=== PATIENT | male | born 1955 | race Caucasian/White ===

== ENCOUNTER 2025-01-23 10:21 | Outpatient (AMB) | payer MEDICARE, SELFPAY ==
--- NOTE | 2025-01-23 11:04 | A.OFFPC_ITS ---
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, Hypertension Radiotelephone Technical Operator Required: No Accompanied by: Self / Same As Patient Allergies albuterol Allergy (Mild, Verified 01/23/25 11:28) thigh chest Tobacco use date assessed: 01/23/25 Fall risk assessment: No Falls in past year Last assessed Fall Risk: 01/23/25 Dental Screening Dental Screen Date: 01/23/25 Did you have a dental visit in the last 12 months?: No Did you have a dental problem in the last 6 months where you did not have access to dental care?: No Was dental information given to patient?: No HPI HPI Comments History of Present Illness Details History of Present Illness The patient is a 69-year-old male presenting for a new patient visit and management of chronic conditions. Myocardial infarction: - The patient experienced a myocardial i nfarction in 2019, which required the placement of one stent. - He is currently on clopidogrel and met oprolol for management. Type 2 diabetes mellitus: - The patient is on metformin and has be en advised to monitor his A1c levels regularly. - He has experienced weight fluctuations , previously losing weight with Mounjaro but has since regained some weight. Hypertension: - The patient is on amlodipine and losar alaniz for blood pressure management. Hyperlipidemia: - The patient is on atorvastatin for cho lesterol management. Sleep apnea: - The patient has a CPAP machine but has stopped using it since May due to interrupted sleep. Chronic obstructive pulmonary disease (COPD): - The patient has a history of COPD, whi ch is managed alongside his sleep apnea. History of smoking: - The patient quit smoking over 30 years ago. Insomnia: - The patient experiences difficulty ana paula ntaining sleep and uses temazepam as needed. History of COVID-19 infection: - The patient was hospitalized in the [facility] for two weeks due to COVID-19. Review of Systems - Cardiovascular: Reports history of sameer cardial infarction. Denies chest pain or palpitations. - Respiratory: Reports history of COPD a nd sleep apnea. Denies dyspnea or wheezing. - Neurological: Reports insomnia. Denies headaches or dizziness. 10-point ROS reviewed and negative excep t as noted in HPI Past Medical History - Myocardial infarction in 2020 with fco nt placement - Type 2 diabetes mellitus - Hypertension - Hyperlipidemia - Sleep apnea - Chronic obstructive pulmonary disease (COPD) - History of smoking, quit over 30 years ago - Insomnia - History of COVID-19 infection, hospita lized in ICU for two weeks Health Maintenance - Colonoscopy performed, two polyps monse latisha, next due at age 73 - Referral to cardiology for follow-up o n myocardial infarction and stenting - Referral to podiatry for diabetic foot screening - Referral to ophthalmology for diabetic eye screening - Referral to sleep medicine for CPAP an d sleep apnea management - Abdominal ultrasound recommended due t o history of smoking Physical Exam General: Well-appearing, in no acute distress. Vital signs: Within normal limits. HEENT: Normocephalic, atraumatic. PERRLA, EOMI. Conjunctiva clear, sclera anicteric. Oropharynx clear, mucous membranes moist. TMs intact bilaterally. Neck: Supple, no lymphadenopathy, no thyromegaly, no JVD or carotid bruits. Cardiovascular: Irregular heartbeat noted. RRR, normal S1/S2, no murmurs, rubs, or gallops. Peripheral pulses 2+ and symmetric. No edema. Respiratory: Lungs clear to auscultation bilaterally, no wheezes, rales, or rhonchi. Normal effort. Abdomen: Soft, non-tender, non-distended. Normoactive bowel sounds. No hepatosplenomegaly, no masses. MSK: Full range of motion, no joint swelling or deformity. Normal gait. Varicose veins noted on legs. Skin: Warm, dry, intact. No rashes, lesions, or pallor. Bruising from insulin injections noted. Neuro: Alert and oriented x3. Cranial nerves II-XII intact. Strength 5/5 throughout. Sensation intact. Reflexes 2+ symmetric. Normal coordination and gait. Psych: Appropriate mood and affect. Normal judgment and insight. Plan 1. Myocardial Infarction - Continue clopidogrel and metoprolol fo r management. Referral to cardiology for follow-up and potential further evaluation. 2. Type 2 Diabetes Mellitus - Continue metformin. Monitor A1c levels regularly. Consider weight management strategies. 3. Hypertension - Continue amlodipine and losartan for b lood pressure control. 4. Hyperlipidemia - Continue atorvastatin for cholesterol management. 5. Sleep Apnea - Referral to sleep medicine for CPAP ev aluation and management of sleep apnea. 6. Chronic Obstructive Pulmonary Disease (Copd) - Manage COPD symptoms in conjunction wi th sleep apnea treatment. 7. History Of Smoking - Abdominal ultrasound recommended to sc reen for aneurysms due to smoking history. 8. Insomnia - Use temazepam as needed for sleep dist urbances. 9. History Of Covid-19 Infection - Monitor for any long-term sequelae fro m previous COVID-19 infection. Discussion Notes During the visit, we discussed the management of your chronic conditions, including myocardial infarction, diabetes, hypertension, and hyperlipidemia. I recommended continuing your current medications and referred you to cardiology for further evaluation. We also discussed the importance of regular monitoring of your A1c levels and weight management strategies. Additionally, I advised a referral to sleep medicine for your sleep apnea and CPAP management. We talked about the need for an abdominal ultrasound due to your history of smoking to screen for aneurysms. Lastly, we reviewed your insomnia management with temazepam as needed. Patient was informed and verbally consented to the use of an ambient scribefor clinic note documentation during this visit. Patient Instructions - Continue taking your prescribed medica tions as directed. - Schedule follow-up appointments with c ardiology and sleep medicine. - Monitor your blood sugar levels and ma intain a healthy diet. - Use temazepam as needed for sleep dist urbances. - Attend scheduled screenings and follow -up appointments. Total time spent caring for the patient today was 30 minutes. This includes time spent before the visit reviewing the chart, time spent documenting, and time spent reviewing medications, performing a medically necessary evaluation, counseling on diagnoses, care coordination, ordering appropriate tests, ordering appropriate medications. [facility] Medical History (Updated 01/23/25 @ 11:57 by Munir Blanchard MD) History of nicotine use Diabetes mellitus type 2, controlled, without complications History of myocardial infarction Surgical History (Updated 01/23/25 @ 11:54 by Munir Blanchard MD) History of coronary artery stent placement Family History (Updated 01/23/25 @ 11:37 by Vinh Carlton MA) Mother Dementia Skin cancer Father No problems noted. Social History (Updated 01/23/25 @ 11:37 by Vinh Carlton MA) Housing: House Alcohol intake: current Alcohol intake frequency: does not drink Patient Tobacco Use Status: Never used Tobacco service: No Current occupational status: retired Cognitive needs: No Hearing needs: No Vision needs: No Questionnaire PHQ-9 Over the last 2 weeks, how often have you been bothered by any of the following problems? 1. Little interest or pleasure in doing things: not at all 2. Feeling down, depressed, or hopeless: not at all 3. Trouble falling or staying asleep, or sleeping too much: several days 4. Feeling tired or having little energy: several days 5. Poor appetite or overeating: not at all 6. Feeling bad about yourself - or that you are a failure or have let yourself or your family down: not at all 7. Trouble concentrating on things, such as reading the newspaper or watching television: not at all 8. Moving or speaking so slowly that other people could have noticed. Or the opposite - being so fidgety or restless that you have been moving around a lot more than usual: not at all 9. Thoughts that you would be better off or of hurting yourself in some way: not at all Total score: 2 Source: Developed by Drs. Tonio Jolley, Felicia Rey, Jose Rainey and colleagues, with an educational allyssa from [employer]. Thrive Questionnaire Date Thrive assessed: 01/23/25 I am a: Patient What is your living situation today?: I have a steady place to live Within the past 12 months, did the food you bought not last and you didn't have the money to get more?: Never true Within the past 12 months, did you worry whether your food would run out before you got money to buy more?: Never true Do you have trouble paying for medicines?: No Do you have trouble getting transportation to medical appointments?: No Do you have trouble paying your heating and electricity bill?: No Do you have trouble taking care of your child, family member or friend?: No Are you currently unemployed and looking for a job?: No Are you interested in more education?: No Please select the resources that you would like help with: None Currently or been in a relationship where the following occur: No concerns reported THRIVE Score: 0 AUDIT C Alcohol Use Questionnaire (AUDIT-C) 1. How often do you have a drink containing alcohol?: Never Total Score: 0 CHRISTIE-7 AMB Questionnaire CHRISTIE-7 Date CHRISTIE - 7 assessed: 01/23/25 Feeling nervous, anxious, or on edge: 0 = Not at all Not being able to stop or control worryin = Not at all Worrying too much about different things: 0 = Not at all Trouble relaxin = Not at all Being so restless that it is hard to sit still: 0 = Not at all Becoming easily annoyed or irritable: 1 = Several days Feeling afraid as if something awful might happen: 0 = Not at all Total CHRISTIE-7 score (0-4 normal; 5-9 mild; 10-14 moderate; 15-21 severe): 1 Source: Developed by Drs. Tonio Jolley, Felicia Rey, Jose Rainey and colleagues, with an educational allyssa from [employer]. Physical exam (Primary Care) Vital Signs: Last Vital Signs Temp 98.2 F 01/23/25 11:25 Pulse 73 01/23/25 11:25 Resp 16 01/23/25 11:25 BP 152/89 H 01/23/25 11:25 Pulse Ox 96 01/23/25 11:25 Oxygen Delivery Method Room Air 01/23/25 11:25 BMI result Body Mass Index 33.3 Tobacco/Smoking Status: Tobacco use Status Tobacco use date assessed 01/23/25 01/23/25 11:06 Patient Tobacco Use Status Never used Tobacco 01/23/25 11:37 PHQ-9: PHQ-9 Score PHQ-9: Total score 2 01/23/25 11:40 Thrive Assessment: Date of Thrive Assessment Date Thrive assessed 01/23/25 01/23/25 11:06 Currently or been in a relationship where the following occur: No concerns reported Coding Level of Care Code New Pt Level 4 (84113) Diagnoses Sleep apnea G47.30 CPAP (continuous positive airway pressure) dependence Z99.89 Irregular heart rate I49.9 History of myocardial infarction I25.2 History of coronary artery stent placement Z95.5 Diabetes mellitus type 2, controlled, without complications E11.9 History of nicotine use Z87.891 Hyperlipidemia E78.5 COPD (chronic obstructive pulmonary disease) J44.9 Insomnia G47.00 History of COVID-19 Z86.16 Assessment & Plan Assessment & Plan (1) Sleep apnea: Code(s): G47.30 - Sleep apnea, unspecified (2) CPAP (continuous positive airway pressure) dependence: Code(s): Z99.89 - Dependence on other enabling machines and devices (3) Irregular heart rate: Code(s): I49.9 - Cardiac arrhythmia, unspecified (4) History of myocardial infarction: Code(s): I25.2 - Old myocardial infarction Category: Medical (5) History of coronary artery stent placement: Code(s): Z95.5 - Presence of coronary angioplasty implant and graft Category: Medical (6) Diabetes mellitus type 2, controlled, without complications: Code(s): E11.9 - Type 2 diabetes mellitus without complications Category: Medical (7) History of nicotine use: Code(s): Z87.891 - Personal history of nicotine dependence Category: Medical (8) Hyperlipidemia: Code(s): E78.5 - Hyperlipidemia, unspecified (9) COPD (chronic obstructive pulmonary disease): Code(s): J44.9 - Chronic obstructive pulmonary disease, unspecified (10) Insomnia: Code(s): G47.00 - Insomnia, unspecified (11) History of COVID-19: Code(s): Z86.16 - Personal history of COVID-19 Plan Orders: Orders Complete Blood Count Auto Diff Today Z13.9 - Encounter for screening, unspecified Hepatitis B Surface Antibody Today Z13.9 - Encounter for screening, unspecified Hepatitis C Antibody Today Z13.9 - Encounter for screening, unspecified HIV Ab/Ag Today Z13.9 - Encounter for screening, unspecified Lipid Panel Today Z13.9 - Encounter for screening, unspecified Microalbumin, Random (w Creat) Today Z13.9 - Encounter for screening, unspecified UA CC w/rflx Micro + Cult Today Z13.9 - Encounter for screening, unspecified Vitamin B12 and Folate Today Z13.9 - Encounter for screening, unspecified Vitamin D 1,25 dihydroxy Today Z13.9 - Encounter for screening, unspecified US abdominal aortic aneurysm Today Z87.891 - Personal history of nicotine dependence Comprehensive Met. Panel Today Z13.9 - Encounter for screening, unspecified Hemoglobin A1c Today Z13.9 - Encounter for screening, unspecified Hepatitis B Surface Antigen Today Z13.9 - Encounter for screening, unspecified Magnesium Today Z13.9 - Encounter for screening, unspecified TSH reflex Free T4 Today Z13.9 - Encounter for screening, unspecified Referrals Cardiology Referral I25.2 - Old myocardial infarction, Z95.5 - Presence of coronary angioplasty implant and graft Ophthalmology Referral E11.9 - Type 2 diabetes mellitus without complications Podiatry Referral E11.9 - Type 2 diabetes mellitus without complications Sleep Medicine Referral G47.30 - Sleep apnea, unspecified, Z99.89 - Dependence on other enabling machines and devices Medications: New clopidogrel 75 mg PO DAILY 90 tabs 0RF amlodipine 5 mg PO DAILY 90 tabs 0RF aspirin 81 mg PO DAILY 90 tabs 0RF atorvastatin (Lipitor) 80 mg PO BEDTIME 90 tabs 0RF blood sugar diagnostic (OneTouch Verio test strips) As directed 100 ea 0RF losartan 100 mg PO DAILY 90 tabs 0RF metformin 1,000 mg PO DAILY 180 tabs 0RF metoprolol succinate ER 50 mg PO DAILY 90 tabs 0RF
[2025-01-23 11:25] VITALS: BP 152/89; PULSE 73; RESP 16; TEMP 36.8; O2SAT 96; BMI 33.3
--- OUTSIDE RECORDS SUMMARY | 2025-01-23 12:24 | XMS_ITS | Clinical Summary ---
Author Organization [facility] Address [address] [place] [address] Care Team Providers Care E Commerce Marketing Analyst Name Role Phone Unavailable Primary Care Provider Unavailabl e Surgical History Surgery Date Site/Laterality Comments COLONOSCOPY 08/22/2008 PROCEDURE: HISTORICAL COLONOSCOPY; COMMENT: Normal. Rec f/u 10 yrs COLONOSCOPY 11/16/2018 PROCEDURE: HISTORICAL COLONOSCOPY; COMMENT: Bing. Diverticulosis and internal hemorrhoids. Otherwise normal. FU 10 years CARDIAC CATHETERIZATION 09/2019 PROCEDURE: HISTORICAL CARDIAC CATH; COMMENT: ALON to mid LCx Medical History Medical History Date Comments Hyperlipidemia 07/15/2017 DX:Hyperlipidemi a Diabetes mellitus type 2, uncomplicated ([facility] V24, [facility] V28) 07/15/2017 DX:Diabetes mellitus type 2, uncomplicated ([facility]) COPD (chronic obstructive pu lmonary disease) ([facility] V24, [facility] V28) 07/15/2017 DX:COPD (chronic o bstructive pulmonary disease) ([facility]); COMMENT: Allergic Asthma Type II diabetes mellitus wi th renal manifestations ([facility] V24, [facility] V28) 07/15/2017 DX:Type II diabetes mellitus with renal manifestations ([facility]) Microalbuminuria 08/16/2017 DX:Microalbumin uria Essential hypertension 08/16/2017 DX:Essent ial hypertension Asthma DX:Asthma Diverticulosis 11/16/2018 DX:Diverticulosi s; COMMENT: Bing History of ST elevation myoc ardial infarction (STEMI) 09/29/[address] elevation myocardial infarction (STEMI); COMMENT: s/p ALON to mild LCxTho Family History Medical History Relation Name Comments Coronary artery disease Father HTN, Gout Lung cancer Mother CAD, HTN, Asthm a, DM II Relation Name Status Comments Father Mother Social History Tobacco Use Types Packs/Day Years Used Date Smoking Tobacco: Former Cigarettes Q uit: 04/19/1991 Smokeless Tobacco: Never Alcohol Use Standard Drinks/Week Comments No 0 (1 standard drink = 0.6 oz pur e alcohol) Sex and Gender Information Value Date Recorded Sex Assigned at Not on file Legal Sex Male 4:36 PM EST Gender Identity Not on file Sexual Orientation Not on file Obstetrics History Plan of Treatment Health Maintenance Due Date Last Done Comments Zoster Vaccines (1 of 2) 02/04/2006 Pneumococcal Vaccine: 50+ Years (2 of 2 - PCV) 07/06/2019 07/05/2018 Depression Screening 04/19/2024 COVID-19 Vaccine (1 - 2023-2 5 season) 2024 Influenza Vaccine (#1) 2024 0, 02/07/2019 DTaP,Tdap,and Td Vaccines (2 - Td or Tdap) 02/07/2029 02/07/2019 RSV Immunization Adult Patients (1 - 1-dose 75+ series) 02/04/2031 HIB Vaccines Aged Out No longer eligi ble based on patient's age to complete this topic HPV Vaccines Aged Out No longer eligi ble based on patient's age to complete this topic Hepatitis A Vaccines Aged Out No long er eligible based on patient's age to complete this topic Hepatitis B Vaccines Aged Out No long er eligible based on patient's age to complete this topic IPV Vaccines Aged Out No longer eligi ble based on patient's age to complete this topic MMR Vaccines Aged Out No longer eligi ble based on patient's age to complete this topic Meningococcal ACWY Vaccine Aged Out N o longer eligible based on patient's age to complete this topic Meningococcal B Vaccine Aged Out No l onger eligible based on patient's age to complete this topic RSV Immunization Patients Under 20 months Aged Out No longer eligible b ased on patient's age to complete this topic Varicella Vaccines Aged Out No longer eligible based on patient's age to complete this topic Advance Directives Documents on File Type Date Recorded 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
== END 2025-01-23 12:13 | disposition home or self-care (01) ==
LOC: HO.HMCFMS 10:22
PROVIDERS: PCP Student in an Organized Health Care Education/Training Program; Visit Provider Student in an Organized Health Care Education/Training Program
DX: G47.30 Sleep apnea, unspecified (principal); Z99.89 Dependence on other enabling machines and devices; I49.9 Cardiac arrhythmia, unspecified; I25.2 Old myocardial infarction; Z95.5 Presence of coronary angioplasty implant and graft; E11.9 Type 2 diabetes mellitus without complications; Z87.891 Personal history of nicotine dependence; E78.5 Hyperlipidemia, unspecified; J44.9 Chronic obstructive pulmonary disease, unspecified; G47.00 Insomnia, unspecified; Z86.16 Personal history of COVID-19

== ENCOUNTER 2025-01-23 10:21 | Outpatient (REF) | payer MEDICARE, SELFPAY ==
[2025-01-23 17:58] LABS: MANUAL DIFF FLAG NO
[2025-01-23 18:15] LABS: Appearance Urine Turbid; Glucose Urine UA Negative (Negative); PH 5.0 (5.0-9.0); Specific Gravity - Urine 1.025 (1.005-1.025)
[2025-01-23 18:22] LABS: Hematocrit 44.5 % (42.0-52.0); Hemoglobin 14.2 g/dl (14.0-18.0); Imm Gran Abs Auto 0.02 X10*3/uL (0.00-0.03); Imm Gran Pct Auto 0.3 % (0.0-0.4); Lymphocytes Absolute Auto 2.3 X10*3/uL (1.2-4.9); Mean Corpuscular HGB Conc 31.9 g/dl (31.0-36.0); Mean Corpuscular Hemoglobin 29.6 pg (27.0-33.0); Mean Corpuscular Volume 92.7 fL (80.0-98.0); NRBC Abs Auto 0.000 X10*3/uL (0.0-0.012); NRBC Pct Auto 0.0 /100WBC (0.0-0.2); Platelet Count 236 X10*3/uL (160-400); Red Blood Count 4.80 X10*6/uL (4.60-5.80); White Blood Count 7.7 X10*3/uL (4.8-10.8)
[2025-01-23 18:32] LABS: Microalbum/Creatinine Ratio Ur 11.2 ug/mg cr (<30)
[2025-01-23 18:44] LABS: Alanine Aminotransferase 20 U/L (0-40); Albumin Level 4.8 g/dL (3.5-5.0); Alkaline Phosphatase 86 U/L (39-117); Anion Gap 14 (12-20); Aspartate Amino Transferase 28 U/L (5-37); Blood Urea Nitrogen 17 mg/dL (9-16); Calcium 9.2 mg/dL (8.4-10.2); Carbon Dioxide 23 mmol/L (22-29); Chloride 106 mmol/L (96-108); Cholesterol 126 mg/dL (<200); Estimated Glomerular Filt Rate 50; HDL Cholesterol 29 mg/dL (>40); Magnesium 2.1 mg/dL (1.6-2.6); Potassium 4.6 mmol/L (3.3-5.1); Sodium 138 mmol/L (135-145); Total Protein 7.9 g/dL (6.5-8.0); Triglycerides 123 mg/dL (<150)
[2025-01-23 19:00] LABS: Folate 7.2 ng/mL (> or = 4.0); Vitamin B12 258 pg/mL (200-900)
[2025-01-24 08:11] LABS: HBS Num1 2.04 mIU/mL (0-7.99); HBsAGNum1 0.35 S/CO (0.00-0.99); HIV Num 1 0.06 S/CO (0.00-0.99); Hepatitis B Surface Antigen Negative (Negative); ~HepC Num1 0.11 S/CO (0.00-0.79); ~Hepatitis B Surface Antibody NONREACTIVE (Nonreactive); ~Hepatitis C Antibody Nonreactive (Nonreactive)
[2025-01-28 10:33] LABS: VITAMIN D (1,25 OH) D3 19 pg/mL; Vit D (1,25-Dihydroxy) Total 19 pg/mL (18-72); Vitamin D (1,25 OH) D2 <8 pg/mL
== END 2025-01-23 10:22 | disposition home or self-care (01) ==
LOC: HO.HKASLDS 10:21
PROVIDERS: PCP Student in an Organized Health Care Education/Training Program; Visit Provider Student in an Organized Health Care Education/Training Program
DX: I25.2 Old myocardial infarction (principal); E11.9 Type 2 diabetes mellitus without complications; I10 Essential (primary) hypertension; R78.5 Finding of other psychotropic drug in blood; G47.30 Sleep apnea, unspecified; J44.9 Chronic obstructive pulmonary disease, unspecified; G47.00 Insomnia, unspecified; I49.9 Cardiac arrhythmia, unspecified; Z95.5 Presence of coronary angioplasty implant and graft; Z86.16 Personal history of COVID-19; Z87.891 Personal history of nicotine dependence; Z99.89 Dependence on other enabling machines and devices
CPT/HCPCS: 36415; 80053; 80061; 81003; 82043; 82570; 82607; 82652; 82746; 83036; 83735; 84443; 85025; 86706; 86803; 87340; 87389; 96127; 99202

== ENCOUNTER 2025-01-30 07:48 | Outpatient (AMB) | payer MEDICARE, SELFPAY ==
--- OUTSIDE RECORDS SUMMARY | 2025-01-30 07:51 | XMS_ITS | Clinical Summary ---
Author Organization [facility] Address [address] [place] [address] Care Team Providers Care Commercial Diver Name Role Phone Unavailable Primary Care Provider [...] DX:Hyperlipidemi a Diabetes mellitus type 2, uncomplicated ([facility] V24, [facility] V28) 07/15/2017 DX:Diabetes mellitus type 2, uncomplicated ([facility]) COPD (chronic obstructive pu lmonary disease) ([facility] V24, [facility] V28) 07/15/2017 DX:COPD (chronic o bstructive pulmonary disease) ([facility]); COMMENT: Allergic Asthma Type II diabetes mellitus wi th renal manifestations ([facility] V24, [facility] V28) 07/15/2017 DX:Type II diabetes mellitus with renal manifestations ([facility]) Microalbuminuria 08/16/2017 DX:Microalbumin uria Essential hypertension 08/16/2017 [...] Documents on File Type Date Recorded Patient Residential Building 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
--- NOTE | 2025-01-30 07:54 | A.OFFVIS_ITS ---
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 The patient experiences difficulty maintaining sleep and uses temazepam as needed. The patient has a CPAP machine but has stopped using it since May due to interrupted sleep. Goes to bed 11pm-12am wakes up 6-6:30am(after 2 -3 hours of sleep wakes up and can not go back to sleep). wants patient to restart CPAP. Machine about 5-6 years ago. Accompanied by: Self / Same As Patient Allergies albuterol Allergy (Mild, Verified 01/30/25 08:00) thigh chest HPI Comments Details: 69 year old male presents for an evaluation of sleep apnea, he is referred to us by his pcp. In 2018, he completed two methacholine challenges and then was diagnosed with copd, he is a former smoker. He goes to bed at 11pm and falls asleep around midnight. He has multiple arousals a night as he is a light sleeper. He snores loudly, denies morning headaches and bruxism. He sleeps on his sides and he used to be able to sleep 7- 8 hours with his cpap. Denies history of GERD. He is trying to lose weight and was taking monjarou 10mg sq weekly. Since moving up here he is unable to pay for it anymore. He takes temazepam 15mg po and this can help him stay asleep. His BP is well managed today. He denies RLS symptoms. His memory is poor. Mood is stable. Diet is stable, since his stent placement and post AK in September 2019 at [facility], he strictly monitors dietary intake and avoids fast foods. He drinks plenty of water and stays active. HST r/o FADY Labs reviewed with pt Vitamin D is low and B12 is low. [facility] Medical History History of nicotine use Diabetes mellitus type 2, controlled, without complications History of myocardial infarction Surgical History History of coronary artery stent placement Family History Mother Dementia Skin cancer Father No problems noted. Social History Housing: House Alcohol intake: current Alcohol intake frequency: does not drink Patient Tobacco Use Status: Never used Tobacco service: No Current occupational status: retired Cognitive needs: No Hearing needs: No Vision needs: No Physical Exam Vital Signs: Last Vital Signs Pulse 95 01/30/25 07:55 BP 126/82 01/30/25 07:55 Pulse Ox 96 01/30/25 07:55 Oxygen Delivery Method Room Air 01/30/25 07:55 BMI result Body Mass Index 33.9 Const General: cooperative and comfortable Nutritional Appearance: overweight Orientation/consciousness: patient oriented x3 HEENT Face and sinus: Yes face symmetric Teeth and gingiva: other (mallampti score is 3) Eyes Pupils: Equal, round and reactive pupils present Neck Neck: Yes full ROM Resp Effort & Inspection: normal respiratory effort and able to speak in complete sentences Neuro Other: mild rue tremor General: patient oriented x3 and moves all extremities Cranial nerves: Yes Equal, round and reactive pupils present, Yes Normal accommodation reflex present, Yes Normal facial strength present, Yes Midline tongue present, Yes Symmetric palate elevation present and Yes Ability to bilaterally elevate shoulders present Cognition (Neuro): normal cognition Gait exam (Neuro): Wide-based gait present Motor exam (neuro): 5/5 motor strength present throughout and Normal motor muscle tone present throughout Deep tendon reflexes (DTR's): Right triceps reflex intensity grade: 2+, Left tri ceps reflex intensity grade: 2+, Rt Biceps (C5, C6): 2+, Left biceps reflex intensity grade: 2+, Right brachioradialis reflex intensity grade: 2+, Left brachioradialis reflex intensity grade: 2+, Right patellar reflex intensity grade: 2+ and Left patellar reflex intensity grade: 2+ Psych Appearance: grossly normal Speech and movement: Normal speech and movement present Attitude: cooperative Thought content: Normal thought content present Assessment & Plan Assessment & Plan (1) Excessive daytime sleepiness: Code(s): G47.19 - Other hypersomnia Category: Medical (2) Low vitamin B12 level: Code(s): R79.89 - Other specified abnormal findings of blood chemistry Category: Medical Plan HST r/o FADY Labs reviewed with pt. Orders: Orders RT home sleep study Today G47.19 - Other hypersomnia Medications: New mecobalamin (vitamin B12) place tablet under tongue and allow to dissolve for at least30 secs before swallowing 1,000 mcg sublingual BEDTIME 60 tabs 0RF anemia 2 months MDD 1000mcg G47.19 - Other hypersomnia, R79.89 - Other specified abnormal findings of blood chemistry Patient Instructions: Sleep Hygiene provided: set a scheduled bedtime and wake time to help regulate the circadian rhythm and balance the release of pituitary hormones. Sleep in a dark room, temperatures below 68 degrees, and no devices n bed. Limit caffeina lalo products 6 hours prior to bed, and limit fluids 2-4 hours prior to bed. Gentle night yoga, diffusing essential oils, and playing soft music can be relaxing. Coding Level of Care Code New Pt Level 4 (06956) Diagnoses Excessive daytime sleepiness G47.19 Low vitamin B12 level R79.89 Sleep Questionnaire Difficulty falling asleep: No Difficulty staying asleep?: Yes Number of arousals: 2-3x Snoring: Yes Witnessed apneas: Yes Gasping arousals: Yes Nocturia: No GERD: No Vivid dreams: No Acting out dreams: No Abnormal behavior in sleep: No Abnormal movements in sleep: No Morning headaches: No Excessive daytime sleepiness: Yes Daytime naps: Yes Restless legs: No Hallucinations: No Sleep paralysis: No Drop attacks: No Sleep Study: Yes (>10 years ago) CPAP: Yes
[2025-01-30 07:55] VITALS: BP 126/82; PULSE 95; O2SAT 96; BMI 33.9
== END 2025-01-30 08:48 | disposition home or self-care (01) ==
LOC: HO.HSMS 07:49
PROVIDERS: PCP Student in an Organized Health Care Education/Training Program; Visit Provider Physician Assistant Medical
DX: G47.19 Other hypersomnia (principal); R79.89 Other specified abnormal findings of blood chemistry
CPT/HCPCS: 99204

== ENCOUNTER → 2025-01-30 07:48 | Outpatient (BNVA) | payer MEDICARE, SELFPAY | PROVIDERS: PCP Student in an Organized Health Care Education/Training Program; Visit Provider Physician Assistant Medical | DX: G47.19 Other hypersomnia (principal); J44.9 Chronic obstructive pulmonary disease, unspecified; E53.8 Deficiency of other specified B group vitamins; Z87.891 Personal history of nicotine dependence | CPT/HCPCS: 99202 ==

== ENCOUNTER 2025-02-06 13:06 | Outpatient (AMB) | payer MEDICARE, SELFPAY ==
[2025-02-06 13:22] VITALS: BP 148/70; PULSE 45; RESP 16; TEMP 36.6; O2SAT 96
--- NOTE | 2025-02-06 13:22 | A.OFFPC_ITS ---
Vital Signs 02/06/25 13:22 Height 5 ft 7.91 in BP 148/70 H Blood Pressure Location Rt brachial Position Sitting Respiration 16 Pulse 45 L Pulse Source Pulse Oximeter Temp 97.9 F Temp Source Oral Pulse Oximetry (%) 96 Oxygen Delivery Method Room Air Intake Visit Reasons: 2 week follow up Security Ambassador Required: No Accompanied by: Self / Same As Patient Allergies albuterol Allergy (Mild, Verified 02/06/25 13:23) thigh chest Tobacco use date assessed: 02/06/25 Fall risk assessment: No Falls in past year Last assessed Fall Risk: 01/23/25 Dental Screening Dental Screen Date: 02/06/25 Did you have a dental visit in the last 12 months?: No Did you have a dental problem in the last 6 months where you did not have access to dental care?: No Was dental information given to patient?: No HPI HPI Comments History of Present Illness Details Consent Patient was informed and verbally consented to the use of an ambient scribe for clinic note documentation during this visit. History of Present Illness The patient is a 70-year-old male presenting with management of chronic kidney disease, prediabetes, and a history of basal cell carcinoma. Chronic Kidney Disease Stage 3A: The patient has been diagnosed with chronic kidney disease stage 3A, which was confirmed through lab results showing decreased kidney function. He has not yet consulted a technical project manager for this condition. The patient is currently on medications such as Losartan, which provide some renal protection. Prediabetes: The patient has been in the prediabetes range for approximately three and a half years, with a current hemoglobin A1c of 6.1%. He is currently managed on Metformin and Tirzepatide, and his condition is being monitored to prevent progression to type 2 diabetes. Basal Cell Carcinoma: The patient has a history of basal cell carcinoma, with previous excisions performed on his face and back. He has undergone biopsies and excisions, and a dermatology referral is planned for further evaluation. Surgical History: - Excision of basal cell carcinoma on fa ce and back Medications: - Metformin 1000 mg for prediabetes - Tirzepatide 10 mg for prediabetes - Losartan for kidney protection - Amlodipine 5 mg - Aspirin 81 mg - Atorvastatin 80 mg - Clopidogrel 75 mg - Clonazepam 300 mg - Metoprolol - Sildenafil - Temazepam Diagnostic Results: - Labs: Complete blood count normal, hem oglobin A1c at 6.1%, HDL at 29, B12 at 258 - Tests: Negative for hepatitis B, C, an d HIV Review of Systems 10-point ROS reviewed and negative excep t as noted in HPI Past Medical History - Chronic Kidney Disease Stage 3A - Prediabetes - Basal Cell Carcinoma Health Maintenance - Hepatitis B vaccination recommended Physical Exam General: Well-appearing, in no acute distress. Vital signs: Within normal limits. HEENT: Normocephalic, atraumatic. PERRLA, EOMI. Conjunctiva clear, sclera anicteric. Oropharynx clear, mucous membranes moist. TMs intact bilaterally. Neck: Supple, no lymphadenopathy, no thyromegaly, no JVD or carotid bruits. Cardiovascular: RRR, normal S1/S2, no murmurs, rubs, or gallops. Peripheral pulses 2+ and symmetric. No edema. Respiratory: Lungs clear to auscultation bilaterally, no wheezes, rales, or rhonchi. Normal effort. Abdomen: Soft, non-tender, non-distended. Normoactive bowel sounds. No hepatosplenomegaly, no masses. MSK: Full range of motion, no joint swelling or deformity. Normal gait. Skin: Warm, dry, intact. No rashes, lesions, or pallor. History of basal cell carcinoma, with previous excisions on the face and back. Neuro: Alert and oriented x3. Cranial nerves II-XII intact. Strength 5/5 throughout. Sensation intact. Reflexes 2+ symmetric. Normal coordination and gait. Psych: Appropriate mood and affect. Normal judgment and insight. Plan 1. Chronic Kidney Disease Stage 3A - Referral to nephrology for further caryl luation and management. - Continue Losartan for renal protection . 2. Prediabetes - Continue Metformin and Tirzepatide to manage blood glucose levels. - Monitor hemoglobin A1c to prevent prog ression to type 2 diabetes. 3. Basal Cell Carcinoma - Dermatology referral for full body ski n examination and management. Discussion Notes I discussed with the patient the management of his chronic kidney disease, emphasizing the importance of nephrology consultation for further evaluation. We reviewed his prediabetes status and the need to continue current medications to prevent progression to type 2 diabetes. I also recommended a dermatology referral for a comprehensive skin examination due to his history of basal cell carcinoma. We discussed the benefits of the hepatitis B vaccination, especially given his diabetic status, and I assured him that we would notify him when the vaccine is available. Patient Instructions - Continue taking all current medication s as prescribed. - Schedule an appointment with a nephrol ogist for kidney evaluation. - Follow up with dermatology for a full body skin examination. - Monitor blood glucose levels and maint ain a healthy lifestyle to manage prediabetes. Medical Decision Making The patient's chronic kidney disease stage 3A requires nephrology consultation to assess renal function and adjust treatment as necessary. His prediabetes is currently managed with Metformin and Tirzepatide, and maintaining these medications is crucial to prevent progression to type 2 diabetes. Given his history of basal cell carcinoma, a dermatology referral is warranted for ongoing surveillance. The recommendation for hepatitis B vaccination is based on his lauro betic status, which increases his susceptibility to infections. Total time spent caring for the patient today was 30 minutes. This includes time spent before the visit reviewing the chart, time spent documenting, and time spent reviewing laboratory results, diagnostic imaging, medications, performing a medically necessary evaluation, counseling on diagnoses, care coordination. [facility] Medical History (Updated 02/06/25 @ 14:00 by Munir Blanchard MD) History of basal cell carcinoma Chronic kidney disease, stage 3 History of nicotine use Diabetes mellitus type 2, controlled, without complications History of myocardial infarction Surgical History History of coronary artery stent placement Family History Mother Dementia Skin cancer Father No problems noted. Social History Housing: House Alcohol intake: current Alcohol intake frequency: does not drink Patient Tobacco Use Status: Never used Tobacco service: No Current occupational status: retired Cognitive needs: No Hearing needs: No Vision needs: No Questionnaire Thrive Questionnaire Date Thrive assessed: 01/23/25 I am a: Patient What is your living situation today?: I have a steady place to live Within the past 12 months, did the food you bought not last and you didn't have the money to get more?: Never true Within the past 12 months, did you worry whether your food would run out before you got money to buy more?: Never true Do you have trouble paying for medicines?: No Do you have trouble getting transportation to medical appointments?: No Do you have trouble paying your heating and electricity bill?: No Do you have trouble taking care of your child, family member or friend?: No Do you have trouble with day-to-day activities such as bathing, preparing meals, shopping, managing finances, etc.?: No Are you currently unemployed and looking for a job?: No Are you interested in more education?: No Please select the resources that you would like help with: None Currently or been in a relationship where the following occur: No concerns reported THRIVE Score: 0 AUDIT C Alcohol Use Questionnaire (AUDIT-C) 3. How often do you have six or more drinks on one occasion?: Never Total Score: 0 CHRISTIE-7 AMB Questionnaire CHRISTIE-7 Date CHRISTIE - 7 assessed: 01/23/25 Source: Developed by Drs. Tonio Jolley, Felicia Rey, Jose Rainey and colleagues, with an educational allyssa from [employer]. Physical exam (Primary Care) Vital Signs: Last Vital Signs Temp 97.9 F 02/06/25 13:22 Pulse 45 L 02/06/25 13:22 Resp 16 02/06/25 13:22 BP 148/70 H 02/06/25 13:22 Pulse Ox 96 02/06/25 13:22 Oxygen Delivery Method Room Air 02/06/25 13:22 Tobacco/Smoking Status: Tobacco use Status Tobacco use date assessed 02/06/25 02/06/25 13:28 Patient Tobacco Use Status Never used Tobacco 02/06/25 13:28 Thrive Assessment: Date of Thrive Assessment Date Thrive assessed 01/23/25 02/06/25 13:28 Currently or been in a relationship where the following occur: No concerns reported Coding Level of Care Code Est Pt Level 4 (36865) Diagnoses Chronic kidney disease, stage 3 N18.30 Diabetes mellitus type 2, controlled, without complications E11.9 Low vitamin B12 level R79.89 History of basal cell carcinoma Z85.828 Assessment & Plan Assessment & Plan (1) Chronic kidney disease, stage 3: Code(s): N18.30 - Chronic kidney disease, stage 3 unspecified Category: Medical (2) Diabetes mellitus type 2, controlled, without complications: Code(s): E11.9 - Type 2 diabetes mellitus without complications Category: Medical (3) Low vitamin B12 level: Code(s): R79.89 - Other specified abnormal findings of blood chemistry Category: Medical (4) History of basal cell carcinoma: Code(s): Z85.828 - Personal history of other malignant neoplasm of skin Category: Medical Plan Orders: Orders US retroperitoneal comp Today N17.9 - Acute kidney failure, unspecified, N18.9 - Chronic kidney disease, unspecified Referrals Dermatology Referral Z85.828 - Personal history of other malignant neoplasm of skin Nephrology Referral N18.30 - Chronic kidney disease, stage 3 unspecified Medications: New tirzepatide (Mounjaro) 10 mg subcut QWEEK 2 mL 0RF E11.9 - Type 2 diabetes mellitus without complications
--- OUTSIDE RECORDS SUMMARY | 2025-02-06 16:57 | XMS_ITS | Clinical Summary ---
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 V24, [facility] V28) 07/15/2017 DX:Diabetes mellitus type 2, uncomplicated ([facility]) COPD (chronic obstructive pu lmonary disease) ([facility] V24, [facility] V28) 07/15/2017 DX:COPD (chronic o bstructive pulmonary disease) ([facility]); COMMENT: Allergic Asthma Type II diabetes mellitus wi th renal manifestations ([facility] V24, [facility] V28) 07/15/2017 DX:Type II diabetes mellitus with renal manifestations ([facility]) Microalbuminuria 08/16/2017 DX:Microalbumin uria Essential hypertension 08/16/2017 [...] Documents on File Type Date Recorded Patient Rules Examiner Expl anation Health Care Decision (hx) 03/18/2018 AD HIGUERA DIRECTIVE Health Care Decision (hx) 03/18/2018 AD HIGUERA DIRECTIVE
== END 2025-02-06 14:02 | disposition home or self-care (01) ==
LOC: HO.HMCFMS 13:08
PROVIDERS: PCP Student in an Organized Health Care Education/Training Program; Visit Provider Student in an Organized Health Care Education/Training Program
DX: N18.30 Chronic kidney disease, stage 3 unspecified (principal); E11.9 Type 2 diabetes mellitus without complications; R79.89 Other specified abnormal findings of blood chemistry; Z85.828 Personal history of other malignant neoplasm of skin

== ENCOUNTER → 2025-02-06 13:06 | Outpatient (BNVA) | payer MEDICARE, SELFPAY | PROVIDERS: PCP Student in an Organized Health Care Education/Training Program; Visit Provider Student in an Organized Health Care Education/Training Program | DX: E11.22 Type 2 diabetes mellitus with diabetic chronic kidney disease (principal); N18.31 Chronic kidney disease, stage 3a; E53.8 Deficiency of other specified B group vitamins; Z85.828 Personal history of other malignant neoplasm of skin; Z79.899 Other long term (current) drug therapy | CPT/HCPCS: 99212 ==

== ENCOUNTER 2025-02-14 12:45 | Outpatient (REF) | payer MEDICARE, SELFPAY | END 2025-02-14 12:46 | disposition home or self-care (01) | LOC: HO.LNP 12:45 | PROVIDERS: PCP Student in an Organized Health Care Education/Training Program; Visit Provider Student in an Organized Health Care Education/Training Program | DX: B35.1 Tinea unguium (principal); E11.9 Type 2 diabetes mellitus without complications; B35.3 Tinea pedis; M77.41 Metatarsalgia, right foot; M77.42 Metatarsalgia, left foot | CPT/HCPCS: 87101; 87220; 88304; 88312; 99202 ==

== ENCOUNTER 2025-02-14 12:45 | Outpatient (AMB) | payer MEDICARE, SELFPAY ==
[2025-02-14 13:08] VITALS: BMI 32.7
--- NOTE | 2025-02-14 13:08 | MHC.OFFVIS ---
Vital Signs 02/14/25 13:08 Height 5 ft 8 in Weight 215 lb BMI 32.7 Intake Visit Reasons: diabetic foot exam Intake Note: Tonio is a 70 year old male who presents to the office today as a new patient visit referred by his PCP Dr. Blanchard for a diabetic foot exam. Pt states his last known glucose was 115 and his A1c was 6.1% as of 01/23/25. Patient denies experiencing numbness and tingling in her feet. Patient denies any history of wounds or amputations to his feet. Allergies albuterol Allergy (Mild, Verified 02/14/25 13:08) thigh chest HPI HPI diabetic foot exam: Details: 70-year-old male with past medical history of diabetes mellitus type 2, CKD stage 3, CAD s/p stent placement, history of nicotine use, presents for annual diabetic foot evaluation. He denies any burning numbness or tingling to his feet. He does endorse complaints of pain to the ball of his foot bilateral feet. He also notes chronic athlete's foot to his feet, which does appear occurs sporadically. He also is complaining of painful thickened big toenails. He has tried topical [id number] treatments in the past however did not have any relief. Today, he denies any pain to his legs or symptoms of claudication. Patient denies N/V/F/C/SOB/CP. [facility] Medical History (Updated 02/14/25 @ 15:55 by Fermin Casey DPM) History of basal cell carcinoma Chronic kidney disease, stage 3 History of nicotine use Diabetes mellitus type 2, controlled, without complications History of myocardial infarction Surgical History History of coronary artery stent placement Family History Mother Dementia Skin cancer Father No problems noted. Social History Housing: House Alcohol intake: current Alcohol intake frequency: does not drink Patient Tobacco Use Status: Never used Tobacco service: No Current occupational status: retired Cognitive needs: No Hearing needs: No Vision needs: No Review of Systems Const All systems reviewed & are unremarkable except as noted in HPI and below Physical Exam Vital Signs: BMI result Body Mass Index 32.7 Extrem Other: *Bilateral Lower Extremity Focused Diabetic Foot Exam Vascular: DP/PT 1/4 bilaterally, CFT<3s to digits, TG warm to cool, no pedal edema, pedal hair absent Derm: Skin: Dry annular scaling bilateral feet plantarly. Interdigital spaces: Clear, no maceration or fungal infection. Nails: Dystrophic thickened elongated nails to bilateral hallux, with discoloration. Neuro: Olancha-gilbert monofilament (10g) test 8/10 intact to right foot, 10/10 intact to left foot. Msk: Moderate to high arch, semi rigid. Mild pain on palpation of the plantar aspect of the left sub 2nd metatarsal region. Negative Syl's test bilaterally. Deformities: No evidence of hammertoes, bunions, Charcot changes, or other structural abnormalities. Muscle strength: 5/5 in all muscle groups. Gait: Normal, no antalgic or steppage gait observed. Footwear Assessment: Shoes inspected; appropriate fit, no excessive wear, or foreign objects noted. Results Reviewed Results Reviewed: Laboratory Tests 01/23/25 13:42 Hemoglobin A1c % 6.1 H Assessment & Plan Assessment & Plan (1) Diabetes mellitus type 2, controlled, without complications: Code(s): E11.9 - Type 2 diabetes mellitus without complications Category: Medical Qualifiers: Diabetes mellitus jail insulin use: without jail use Qualified Code(s): E11.9 - Type 2 diabetes mellitus without complications Plan: Risk Stratification: No current ulceration, infection, or pre-ulcerative lesion. Mild loss of protective sensation & peripheral arterial disease. No plans for further testing/referrals for non-invasive vascular studies. Patient is at low risk for diabetic foot complications at this time. Recommendations: Continue routine foot care and daily self-inspection. Recommend moisturizing daily. Recommend supportive proper fitting shoe-wear. The patient was referred for custom diabetic shoes. Reinforced diabetic foot education and risks from peripheral neuropathy. (2) Metatarsalgia of both feet: Code(s): M77.41 - Metatarsalgia, right foot; M77.42 - Metatarsalgia, left foot Category: Medical Plan: Patient will be referred for diabetic shoes with custom-molded inserts with forefoot padding. (3) Tinea pedis: Code(s): B35.3 - Tinea pedis Category: Medical Qualifiers: Laterality: bilateral Qualified Code(s): B35.3 - Tinea pedis Plan: Rx clotrimazole (4) Tinea unguium: Code(s): B35.1 - Tinea unguium Category: Medical Plan: Nail biopsy performed of left hallux nail. Discussed treatment options including topical treatment versus oral antifungal medications. Explained that oral antifungals such as terbinafine (Lamisil) may cause gastrointestinal upset, headache, rash, taste disturbances, and hepatotoxicity. Baseline and monthly liver function monitoring is recommended during therapy. Patients should be advised to report symptoms such as jaundice, dark urine, or persistent nausea. Patient was counseled on the importance of anti-fungal foot hygiene, including daily washing and thorough drying of feet, regular changing of socks, and use of breathable footwear. Recommended antifungal sprays shoes. Education provided on keeping toenails trimmed and clean to reduce risk of fungal infections. Preventive strategies discussed to minimize recurrence of fungal infections. Rx ciclopirox Medications: New clotrimazole 1% 1 appl topical BID 30 grams 3RF athlete's foot 4 weeks B35.1 - Tinea unguium, B35.3 - Tinea pedis ciclopirox 8% Apply to fungal toenails daily. Remove build-up at the end of the week. 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
--- OUTSIDE RECORDS SUMMARY | 2025-02-14 16:07 | XMS_ITS | Clinical Summary ---
Author Organization [facility] Address [address] [place] [address] Care Team Providers Care File Drawer Finisher Name Role Phone Unavailable Primary Care Provider [...] DX:Hyperlipidemi a Diabetes mellitus type 2, uncomplicated ([facility] V24, [facility] V28) 07/15/2017 DX:Diabetes mellitus type 2, uncomplicated ([facility]) COPD (chronic obstructive pu lmonary disease) ([facility] V24, [facility] V28) 07/15/2017 DX:COPD (chronic o bstructive pulmonary disease) ([facility]); COMMENT: Allergic Asthma Type II diabetes mellitus wi th renal manifestations ([facility] V24, [facility] V28) 07/15/2017 DX:Type II diabetes mellitus with renal manifestations ([facility]) Microalbuminuria 08/16/2017 DX:Microalbumin uria Essential hypertension [...] Documents on File Type Date Recorded Patient Rn Labor And Delivery Expl anation Health Care Decision (hx) 03/18/2018 AD HIGUERA DIRECTIVE Health Care Decision (hx) 03/18/2018 AD HIGUERA DIRECTIVE
== END 2025-02-14 13:56 | disposition home or self-care (01) ==
LOC: HO.HPODS 12:46
PROVIDERS: PCP Student in an Organized Health Care Education/Training Program; Visit Provider Student in an Organized Health Care Education/Training Program
DX: E11.9 Type 2 diabetes mellitus without complications (principal); M77.41 Metatarsalgia, right foot; M77.42 Metatarsalgia, left foot; B35.3 Tinea pedis; B35.1 Tinea unguium
CPT/HCPCS: 99204

== ENCOUNTER 2025-02-27 13:23 | Outpatient (AMB) | payer MEDICARE, SELFPAY ==
--- NOTE | 2025-02-27 13:33 | HO.NEPHOV_ITS ---
Vital Signs 02/27/25 13:36 Height 5 ft 8 in Weight 226 lb 8 oz BMI 34.4 BP 130/82 Blood Pressure Location Lt brachial Position Sitting Pulse 48 L Pulse Source Pulse Oximeter Pulse Oximetry (%) 97 Oxygen Delivery Method Room Air Intake Visit Reasons: INP: CKD stage 3-Conf Whitewasher Required: No Accompanied by: Self / Same As Patient Allergies albuterol Allergy (Mild, Verified 02/27/25 13:36) Chest tightness HPI Comments Details: I had the pleasure of seeing Tonio in consultation for chronic kidney disease and hypertension. He was diagnosed with stage III CKD when he was living in [place] and had been under the care of a control supervisor there. He has moved to [place] and is meeting me for establishing renal care. He is a prediabetic and had been on metformin. To his knowledge his renal function had been stable in [place]. His weight has been fluctuant which was helped by Nathalia in the past and has been restarted now. He denies any awareness of proteinuria , retinopathy or neuropathy. He had a coronary artery disease and had undergone PCI and stenting. He continues to be on Plavix many years after his PCI and is not sure why. He is on losartan and amlodipine along with metoprolol which is keeping his blood pressure at goal. Lately his heart rate has been running in 40's. He does not see a vice president global advertising sales here yet. He is on statins. He has no history of hepatitis, deafness, recurrent sinusitis, epistaxis, joint swellings, gout, photosensitivity, skin rashes, edema, hematuria, hypercalcemia, new bone or back pain. He used to take excessive nonsteroidal anti-inflammatories in the past. He maintains good hydration. He does not have any chest pain, shortness of breath, proximal nocturnal dyspnea, orthopnea, pedal edema, orthostatic symptoms. His last serum creatinine was 1.42. [facility] Medical History (Updated 02/27/25 @ 13:40 by Yassine Stanford MD) History of basal cell carcinoma Chronic kidney disease, stage 3 History of nicotine use Diabetes mellitus type 2, controlled, without complications History of myocardial infarction Surgical History History of coronary artery stent placement Family History Mother Dementia Skin cancer Father No problems noted. Social History Housing: House Alcohol intake: current Alcohol intake frequency: does not drink Patient Tobacco Use Status: Never used Tobacco service: No Current occupational status: retired Cognitive needs: No Hearing needs: No Vision needs: No Review of Systems Const All systems reviewed & are unremarkable except as noted in HPI and below Physical Exam Vital Signs: Last Vital Signs Pulse 48 L 02/27/25 13:36 BP 130/82 02/27/25 13:36 Pulse Ox 97 02/27/25 13:36 Oxygen Delivery Method Room Air 02/27/25 13:36 BMI result Body Mass Index 34.4 Const General: comfortable and no acute distress Orientation/consciousness: patient oriented x3 HEENT Head: Yes normocephalic Mouth: Normal oral and palatal mucosa present Eyes EOM: EOMs intact bilaterally Neck Neck: Yes supple Resp Auscultation: clear to auscultation bilaterally Cardio Jugular venous distension: no JVD Rate: regular rate GI Palpation (GI): Soft to palpation Auscultation: normal bowel sounds General: Yes no CVA tenderness Back/Spine/Pelvis Back: no CVA tenderness Skin General skin exam: no rashes or lesions noted Neuro General: patient oriented x3 and moves all extremities Extrem General: Yes no pedal edema Results Reviewed Nephrology Results: Hgb, (14.0-18.0) 14.2 g/dl 01/23/25 WBC, (4.8-10.8) 7.7 X10*3/uL 01/23/25 Plt Count, (160-400) 236 X10*3/uL 01/23/25 Sodium, (135-145) 138 mmol/L 01/23/25 Potassium, (3.3-5.1) 4.6 mmol/L 01/23/25 Chloride, (96-108) 106 mmol/L 01/23/25 Carbon Dioxide, (22-29) 23 mmol/L 01/23/25 BUN, (9-16) 17 mg/dL H 01/23/25 Creatinine, (0.5-1.4) 1.42 mg/dL H 01/23/25 Calcium, (8.4-10.2) 9.2 mg/dL 01/23/25 Urine Protein, (Neg-Trace) Trace mg/dL 01/23/25 Urine Creatinine 178.42 mg/dL 01/23/25 Assessment & Plan Assessment & Plan (1) Chronic kidney disease, stage 3: Code(s): N18.30 - Chronic kidney disease, stage 3 unspecified Category: Medical Qualifiers: Chronic kidney disease stage 3 subtype: stage 3a (GFR 45-59) Qualified Code(s): N18.31 - Chronic kidney disease, stage 3a (2) Hypertension: Code(s): I10 - Essential (primary) hypertension Category: Medical Qualifiers: Hypertension type: primary hypertension Qualified Code(s): I10 - Essential (primary) hypertension Plan Tonio has CKD stage 3 most likely due to vascular disease. He is known to have coronary artery disease. He could come off Plavix. His heart rate has been running in 40s. If that persists he need a Holter monitor to establish the rhyt hm, echocardiogram. If both are normal his metoprolol dose needs to be cut back . I ordered renal imaging studies including Doppler of renal arteries. We could discontinue his metformin and initiate him on Jardiance which I will help with his diabetes as well as CKD. He abstains from nonsteroidal anti- inflammatories and maintains good hydration. He is on statins. I did not make any medication changes today but rather ordered lab work including 24 hour urine for creatinine clearance. Answered all questions and follow-up was given. Orders: Orders US renal BI 1 Month I10 - Essential (primary) hypertension, N18.31 - Chronic kidney disease, stage 3a Immunofixation Pnl, Serum Today I10 - Essential (primary) hypertension, N18.31 - Chronic kidney disease, stage 3a Immunofixation, Random Urine Today I10 - Essential (primary) hypertension, N18.31 - Chronic kidney disease, stage 3a Creatinine 3 Months I10 - Essential (primary) hypertension, N18.31 - Chronic kidney disease, stage 3a Creatinine Clearance Urine 24U 3 Months N18.31 - Chronic kidney disease, stage 3a US renal doppler 1 Month I10 - Essential (primary) hypertension, N18.31 - Chronic kidney disease, stage 3a Parathyroid Hormone Intact Today I10 - Essential (primary) hypertension, N18.31 - Chronic kidney disease, stage 3a Blood Urea Nitrogen 3 Months I10 - Essential (primary) hypertension, N18.31 - Chronic kidney disease, stage 3a Electrolytes 3 Months I10 - Essential (primary) hypertension, N18.31 - Chronic kidney disease, stage 3a Coding Level of Care Code New Pt Level 4 (53927) Diagnoses Stage 3a chronic kidney disease N18.31 Chronic kidney disease stage 3 subtype: stage 3a (GFR 45-59) Primary hypertension I10 Hypertension type: primary hypertension
[2025-02-27 13:36] VITALS: BP 130/82; PULSE 48; O2SAT 97; BMI 34.4
--- OUTSIDE RECORDS SUMMARY | 2025-02-27 15:03 | XMS_ITS | Clinical Summary ---
Author Organization [facility] Address [address] [place] [address] Care Team Providers Care Senior Care Manager Name Role Phone Unavailable Primary Care Provider [...] DX:Hyperlipidemi a Diabetes mellitus type 2, uncomplicated ([facility] V24, [facility] V28) 07/15/2017 DX:Diabetes mellitus type 2, uncomplicated ([facility]) COPD (chronic obstructive pu lmonary disease) ([facility] V24, [facility] V28) 07/15/2017 DX:COPD (chronic o bstructive pulmonary disease) ([facility]); COMMENT: Allergic Asthma Type II diabetes mellitus wi th renal manifestations ([facility] V24, [facility] V28) 07/15/2017 DX:Type II diabetes mellitus with renal manifestations ([facility]) Microalbuminuria 08/16/2017 DX:Microalbumin uria Essential hypertension 08/16/2017 [...] Years Used Date Smoking Tobacco: Former Cigarettes 2 Q uit: 04/19/1991 Smokeless Tobacco: Never Alcohol [...] Depression Screening 04/19/2024 COVID-19 Vaccine (1 - 2024-2 6 season) 2024 Influenza Vaccine (#1) 2024 0, [...] Documents on File Type Date Recorded Patient Industrial Photographer Expl anation Health Care Decision (hx) 03/18/2018 AD HIGUERA DIRECTIVE Health Care Decision (hx) 03/18/2018 AD HIGUERA DIRECTIVE
== END 2025-02-27 14:12 | disposition home or self-care (01) ==
LOC: HO.HKAS 13:24
PROVIDERS: PCP Student in an Organized Health Care Education/Training Program; Visit Provider Internal Medicine Nephrology
DX: N18.31 Chronic kidney disease, stage 3a (principal); I10 Essential (primary) hypertension
CPT/HCPCS: 99204

== ENCOUNTER 2025-02-27 13:23 | Outpatient (REF) | payer MEDICARE, SELFPAY ==
[2025-02-27 18:18] LABS: Parathyroid Hormone Intact 117.9 pg/mL (8.7-77.1)
== END 2025-02-27 13:24 | disposition home or self-care (01) ==
LOC: HO.HKASLDS 13:23
PROVIDERS: PCP Student in an Organized Health Care Education/Training Program; Visit Provider Internal Medicine Nephrology
DX: I12.9 Hypertensive chronic kidney disease with stage 1 through stage 4 chronic kidney disease, or unspecified chronic kidney disease (principal); E11.22 Type 2 diabetes mellitus with diabetic chronic kidney disease; N18.31 Chronic kidney disease, stage 3a; Z01.84 Encounter for antibody response examination; I25.10 Atherosclerotic heart disease of native coronary artery without angina pectoris; Z79.899 Other long term (current) drug therapy; Z79.84 Long term (current) use of oral hypoglycemic drugs
CPT/HCPCS: 82784; 83970; 86334; 86335; 99202

== ENCOUNTER 2025-03-28 10:04 | Outpatient (REF) | payer MEDICARE, SELFPAY ==
--- NOTE | ~2025-03-28 | US_ITS ---
EXAMINATION: US RETROPERITONEAL LIMITED (AORTA) CLINICAL INFORMATION: Z 87.891.. COMPARISON: None available. TECHNIQUE: Melendez-scale, color Doppler and spectral Doppler evaluation of the abdominal aorta. FINDINGS: Abdominal aorta is patent with the contour irregularity. The proximal segment is not fully evaluated. Abdominal aorta diameter: Midsegment/infrarenal: 2.6 x 2.9 cm. Distal segment: 2.5 x 2.9 cm. Abdominal aorta peak systolic velocity: 85 cm/s. Right common iliac artery is patent with a diameter 1.2 x 1.1 cm. Left common iliac artery is patent with the diameter 1.2 x 1.4 cm. US/US abdominal aortic aneurysm IMPRESSION: Incomplete evaluation of the proximal segment, otherwise no aneurysm.. Electronically signed by: Andrez Celeste MD 03/28/2025 11:13 AM CANDIDA BLACK
== END 2025-03-28 10:05 | disposition home or self-care (01) ==
LOC: HO.US 10:04
PROVIDERS: PCP Student in an Organized Health Care Education/Training Program; Visit Provider Student in an Organized Health Care Education/Training Program
DX: G47.19 Other hypersomnia (principal); Z87.891 Personal history of nicotine dependence
CPT/HCPCS: 76706

== ENCOUNTER → 2025-03-28 10:06 | Outpatient (BNV) | payer MEDICARE, SELFPAY | PROVIDERS: PCP Student in an Organized Health Care Education/Training Program; Visit Provider Radiology Diagnostic Radiology | DX: Z87.891 Personal history of nicotine dependence (principal) | CPT/HCPCS: 76706 ==

== ENCOUNTER → 2025-04-11 10:02 | Outpatient (REF) | payer MEDICARE, SELFPAY ==
--- OUTSIDE RECORDS SUMMARY | 2025-04-11 10:13 | XMS_ITS | Clinical Summary ---
Author Organization [facility] Address [address] [place] [address] Care Team Providers Care Reimbursement Counselor Name Role Phone Unavailable Primary Care Provider [...] a Diabetes mellitus type 2, uncomplicated ([facility] V24, [facility] V28) 07/15/2017 DX:Diabetes mellitus type 2, uncomplicated ([facility]) COPD (chronic obstructive pu lmonary disease) ([facility] V24, [facility] V28) 07/15/2017 DX:COPD (chronic o bstructive pulmonary disease) ([facility]); COMMENT: Allergic Asthma Type II diabetes mellitus wi th renal manifestations ([facility] V24, [facility] V28) 07/15/2017 DX:Type II diabetes mellitus with renal manifestations ([facility]) Microalbuminuria 08/16/2017 DX:Microalbumin uria Essential [...] on file Sexual Orientation Not on file Plan of Treatment Health Maintenance Due Date [...] Documents on File Type Date Recorded Patient Network Cable Installer Expl anation Health Care Decision (hx) 03/18/2018 AD HIGUERA DIRECTIVE Health Care Decision (hx) 03/18/2018 AD HIGUERA DIRECTIVE
== END ==
LOC: HO.SL 10:02
PROVIDERS: PCP Student in an Organized Health Care Education/Training Program; Visit Provider Physician Assistant Medical
DX: I25.10 Atherosclerotic heart disease of native coronary artery without angina pectoris (principal); G47.19 Other hypersomnia; E11.22 Type 2 diabetes mellitus with diabetic chronic kidney disease; N18.30 Chronic kidney disease, stage 3 unspecified; I49.3 Ventricular premature depolarization; J44.9 Chronic obstructive pulmonary disease, unspecified; Z79.84 Long term (current) use of oral hypoglycemic drugs; Z79.85 Long-term (current) use of injectable non-insulin antidiabetic drugs; Z79.82 Long term (current) use of aspirin; Z79.02 Long term (current) use of antithrombotics/antiplatelets
CPT/HCPCS: 93005; 99202

== ENCOUNTER 2025-04-11 10:19 | Outpatient (AMB) | payer MEDICARE, SELFPAY ==
--- OUTSIDE RECORDS SUMMARY | 2025-04-11 10:30 | XMS_ITS | Encounter Summary ---
Author Organization [facility] Prior to 02/18/[address] [place] [address] Care Team Providers Care Grinder Setup Operator Name Role Phone Hannah Steinberg MD Primary Care Provider U peggy Jones, Pcp Primary Care Provider David e Encounter Details Date Type Department Care Team Description 10/01/2019 Hospital Medical Records [address] [place] [address] Social History Tobacco Use Types Packs/Day Years Used Date Smoking Tobacco: Former Cigarettes 2 30 Q uit: 04/19/1991 Smokeless Tobacco: Never Comments:Quit 30 yrs ago, >6 0 pack/yr history Alcohol Use Standard Drinks/Week Comments No 0 (1 standard drink = 0.6 oz pur e alcohol) Sex Assigned at Date Recorded Not on file documented as of this encounter Plan of Treatment Not on file documented as of this encounter Visit Diagnoses Not on filedocumented in this encounter Care Teams Grinder Setup Operator Relationship Specialty Start Date End Date Hannah Steinberg MD PCP - General Internal Medicine 01/20/1802/17 Karen, Kwame PCP - General Internal Medicine 02/27/21 documented as of this encounter
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
--- OUTSIDE RECORDS SUMMARY | 2025-04-11 10:30 | XMS_ITS | Encounter Summary ---
Author Organization [facility] Prior to 02/18/[address] [place] [address] Care Team Providers Care Glassblower Name Role Phone Hannah Steinberg MD Primary Care Provider U peggy Jones, Pcp Primary Care Provider [facility] Encounter Details Date Type Department Care Team Description 07/11/2020 [facility] Medical Records [address] [place] [address] Abstract, Provider Social History Tobacco Use Types Packs/Day Years [...] on filedocumented in this encounter Care Teams Glassblower Relationship Specialty Start Date End Date Hannah Steinberg MD PCP - General Internal Medicine 01/20/1802/17 Karen, Pcp PCP - General Internal Medicine 02/27/21 documented as of this encounter
--- OUTSIDE RECORDS SUMMARY | 2025-04-11 10:30 | XMS_ITS | Encounter Summary ---
Author Organization [facility] Prior to 02/18/[address] [place] [address] Care Team Providers Care Multiple Resaw Operator Name Role Phone Fuentes Disla MD Primary Care Provider Unavail able Hannah Steinberg MD Primary Care Provider [facility], Pcp Primary Care Provider Unavailabl e Reason for Visit * Reason Onset Date Comments APPOINTMENT 11/30/2017 Encounter Details Date Type Department Care Team Description 11/30/2017 Telephone Adult Medicine [address] [address] Ban Mendoza FNP [address] [place] [address] APPOINTMENT Social History Tobacco Use Types Packs/Day Years [...] encounter Miscellaneous Notes * Telephone Encounter - CHUCHO Reid - 11/30/2017 9:22 PM EDT Please schedule for sleep apnea FU. All sleep study results are back. documented in this encounter Plan of Treatment Not on file documented as of this encounter Visit Diagnoses Not on filedocumented in this encounter Care Teams Multiple Resaw Operator Relationship Specialty Start Date End Date Fuentes Disla MD PCP - General Internal Medicine 11/09/17 01/19/18 Hannah Steinberg MD PCP - General Internal Medicine 01/20/1802/17 Pending Sale To [facility], Pcp PCP - General Internal Medicine 02/27/21 documented as of this encounter
--- OUTSIDE RECORDS SUMMARY | 2025-04-11 10:30 | XMS_ITS | Encounter Summary ---
Author Organization [facility] Prior to 02/18/[address] [place] [address] Care Team Providers Care Signal Manager Name Role Phone Hannah Steinberg MD Primary Care Provider U Fuentes Garcia MD Primary Care Provider Unavail able Hannah Steinberg MD Primary Care Provider U peggy Jones, Pcp Primary Care Provider Unavailabl e Encounter Details Date Type Department Care Team Description 09/21/2017 Manager Mission Report Medical Records [address] [place] [address] Rehab., Javier Social History Tobacco Use Types Packs/Day Years [...] on filedocumented in this encounter Care Teams Signal Manager Relationship Specialty Start Date End Date Hannah Steinberg MD PCP - General Internal Medicine 06/25/1711/08 Fuentes Disla MD PCP - General Internal Medicine 11/09/17 01/19/18 Hannah Steinberg MD PCP - General Internal Medicine 01/20/1802/17 [facility], Pcp PCP - General Internal Medicine 02/27/21 documented as of this encounter
--- OUTSIDE RECORDS SUMMARY | 2025-04-11 10:30 | XMS_ITS | Encounter Summary ---
Author Organization [facility] Prior to 02/18/[address] [place] [address] Care Team Providers Care Employment Manager Name Role Phone Hannah Steinberg MD Primary Care Provider [facility], Pcp Primary Care Provider Unavailabl e Reason for Visit * Reason Comments E-prescribe Rx Request Encounter Details Date Type Department Care Team Description 05/25/2019 Refill Adult Medicine [address] [address] Florecita Woodall PA-C [address] [place] [address] E-prescribe Rx Request Social History Tobacco Use Types Packs/Day Years [...] Telephone Encounter - Hannah Ortega MD - 05/26/2019 12:15 PM EST Signed, thank you * Telephone Encounter - Paula-Laurence Moore M.A. - 05/26/2019 10:18 AM EST Last office visit 1.6.20 Lab Results Component Value Date NA 138 04/10/2019 K 5.0 04/10/2019 CO2 28 04/10/2019 CL 105 04/10/2019 BUN 13 04/10/2019 CREAT 1.34 04/10/2019 GLU 128 04/10/2019 CA 9.1 04/10/2019 GFR 54 04/10/2019 * Telephone Encounter - Emilie Caal - 05/25/2019 5:38 PM EST Patient would like script to be: E-PRESCRIBED/FAXED TO PHARMACY WHEN WAS THE PATIENT'S LAST APPOINTMENT IN ADULT MEDICINE? 04-24-19 WHEN WAS THE LAST TIME THE PATIENT SAW THEIR PCP? 02-07-19 Does patient have an upcoming appointment? Yes 08-09-19 (THE MEDICATION REQUESTED IS ON THE MED LIST ABOVE) All of the medications requested were on the CURRENT MEDS list Did you check the Pharmacy information above?: YES Patient wants: 90 -day supply Is this a mail order [...] on filedocumented in this encounter Care Teams Employment Manager Relationship Specialty Start Date End Date Hannah Steinberg MD PCP - General Internal Medicine 01/20/1802/17 [facility], Pcp PCP - General Internal Medicine 02/27/21 documented as of this encounter
--- OUTSIDE RECORDS SUMMARY | 2025-04-11 10:31 | XMS_ITS | Encounter Summary ---
Author Organization [facility] Prior to 02/18/[address] [place] [address] Care Team Providers Care Ambulance Operations Supervisor Name Role Phone Hannah Steinberg MD [facility] Primary Care Provider Unavail able Hannah Steinberg MD Primary Care Provider [facility], Pcp Primary Care Provider Unavailabl e Reason for Referral * Non OJ (Routine) - Authorized/Booked Specialty Diagnoses / Procedures Referred By Contac t Referred To Contact Pulmonology Diagnoses Obstructive sleep apnea Chronic obstructive pulmonary disease, unspecified COPD type (HCC) Procedures REFERRAL TO PULMONOLOGY Hannah Steinberg MD [address] [place] [address] Pulca/Brina [address] [place] [address] Referral ID Status Reason Start Date Expiration Date V isits Requested Visits Authorized [id number] Authorized/B ooked 09/02/2017 09/02/2018 1 1 Encounter Details Date Type Department Care Team Description 09/02/2017 Orders Only Adult Medicine B - [address] [address] Hannah Steinberg MD Obstructive sleep apnea severe AHI 34 with sleep related hypoxia (Primary Dx); Chronic obstructive pulmonary disease, unspecified COPD type (HCC) Social History Tobacco Use Types Packs/Day Years Used Date Smoking Tobacco: Former Cigarettes 2 30 Q uit: 04/19/1991 Smokeless Tobacco: Never Comments:Quit 30 yrs ago, >6 0 pack/yr history Alcohol Use Standard Drinks/Week Comments No 0 (1 standard drink = 0.6 oz pur e alcohol) Sex Assigned at Date Recorded Not on file documented as of this encounter Plan of Treatment Scheduled Orders Name Type Priority Associated Diagnoses Orde r Schedule SLEEP STUDY-FULL NEURO 16 CHANNEL SLEEP STUDY Routine Obstructive sleep apnea severe AHI 34 with sleep related hypoxia Chronic obstructive pulmonary disease, unspecified COPD type (HCC) Expected: 09/02/2017, Expires: 09/02/2018 documented as of this encounter Visit Diagnoses Diagnosis Obstructive sleep apnea severe AHI 34 with sleep related hypoxia- Primary Obstructive sleep apnea (adult) (pediatric) Chronic obstructive pulmonary disease, unspecified COPD type (HCC) documented in this encounter Care Teams Ambulance Operations Supervisor Relationship Specialty Start Date End Date Hannah Steinberg MD PCP - General Internal Medicine 06/25/1711/08 Fuentes Disla MD PCP - General Internal Medicine 11/09/17 01/19/18 Hannah Steinberg MD PCP - General Internal Medicine 01/20/1802/17 [facility] Pcp PCP - General Internal Medicine 02/27/21 documented as of this encounter
--- OUTSIDE RECORDS SUMMARY | 2025-04-11 10:31 | XMS_ITS | Encounter Summary ---
Author Organization [facility] Prior to 02/18/2024 Address [address] [place] [address] Care Team Providers Care Tax Commissioner Name Role Phone Hannah Steinberg MD Primary Care Provider U peggy Jones, Pcp Primary Care Provider Unavailabl e Encounter Details Date Type Department Care Team Description 08/29/2018 Refill Gastroenterology [address] [place] [address], [facility] Social History Tobacco Use Types Packs/Day Years [...] on filedocumented in this encounter Care Teams Tax Commissioner Relationship Specialty Start Date End Date Hannah Steinberg MD PCP - General Internal Medicine 01/20/1802/17 Karen, Pcp PCP - General Internal Medicine 02/27/21 documented as of this encounter
--- OUTSIDE RECORDS SUMMARY | 2025-04-11 10:31 | XMS_ITS | Encounter Summary ---
Author Organization Formerly [facility] Prior to 02/18/[address] [place] [address] Care Team Providers Care Civil Engineering Teacher Name Role Phone Hannah Steinberg MD Primary Care Provider [facility], Pcp Primary Care Provider Unavailabl e Encounter Details Date Type Department Care Team Description 02/06/2019 Orders Only Adult Medicine [address] [address] Hannah Steinberg MD DINA (acute kidney injury) (HCC) (Primary Dx) Social History Tobacco Use Types Packs/Day Years [...] on file documented as of this encounter Results * (ABNORMAL) BASIC METABOLIC PANEL (03/13/2019 8:31 AM EST) GLUCOSE 132(H) 70 - 100 mg/dL 03/13/2019 12:40 PM EST [facility] Comment:Reference range appl icable to fasting specimens only Blood Urea Nitrogen 21 5 - 25 mg/dL 03/13/2019 12:40 PM EST [facility] CREAT 1.67(H) 0.7 - 1.3 mg/dL 03/13/2019 12:40 PM EST [facility] GLOMERULAR FILTRATION RATE 42 03/13/2019 12:40 PM EST [facility] Comment: If patient is -Nepalese, multiply result by 1.21 Chronic Kidney Disease: < 60 ml/min/1.73 square meters Kidney Failure: < 15 ml/min/1.73 square meters NA 134(L) 135 - 145 mEq/L 03/13/2019 12:40 PM EST [facility] K 5.7(H) 3.5 - 5.5 mmol/L 03/13/2019 12:40 PM EST [facility] CL 104 96 - 110 mmol/L 03/13/2019 12:40 PM EST [facility] CARBON DIOXIDE (CO2) 25 21 - 32 mmol/L 03/13/2019 12:40 PM EST [facility] ANION GAP 5 3 - 11 03/13/2019 12:40 PM EST [facility] CALCIUM 9.2 8.5 - 10.5 mg/dL 03/13/2019 12:40 PM EST [facility] 03/13/2019 8:31 AM EST 03/13/2019 8:32 AM EST Hannah Ortega MD LAB [facility] documented in this encounter Visit Diagnoses Diagnosis DINA (acute kidney injury) (HCC)- Primary Acute kidney failure, unspecified documented in this encounter Care Teams Civil Engineering Teacher Relationship Specialty Start Date End Date Hannah Steinberg MD PCP - General Internal Medicine 01/20/1802/17 [facility], Pcp PCP - General Internal Medicine 02/27/21 documented as of this encounter
--- OUTSIDE RECORDS SUMMARY | 2025-04-11 10:31 | XMS_ITS | Encounter Summary ---
Author Organization [facility] Prior to 02/18/[address] [place] [address] Care Team Providers Care Carpentry Professional Name Role Phone Hannah Steinberg MD Primary Care Provider [facility], Pcp Primary Care Provider Unavailabl e Reason for Visit * Reason Onset Date Comments Prior Authorization 03/02/2019 Encounter Details Date Type Department Care Team Description 03/02/2019 Telephone Pulmonology - [place] [address] [address] Viktor Schulte MD [address] [facility] [address] [place] [address] Prior Authorization Social History Tobacco Use Types Packs/Day Years [...] encounter Miscellaneous Notes * Telephone Encounter - Wendi Rosas M.A. - 03/15/2019 10:55 AM EST Approved for ronaldo luis 100-25mcg from 03/10/2019-03/09/2021 Reference number : [id number] Quantity approved: only includes 60 blisters for 30 days . An additional approval may be required if future prescriptions exceed this quantity Pharmacy notified * Telephone Encounter - Wendi Rosas M.A. - 03/10/2019 10:40 AM EST Dx code:COPD with sleep apnea , Asthma Past Rx tried and failed: Medication:xopenex inhaler 45mcg 03/29/2018-12/01/2018 Flovent hfa one bid 03/25/2018-06/20/2018 arnuity ellipta 100mcg 11/28/2018-02/07/2019 Albuterol 12/15/2017-03/29/2018 Other pertinent information:prior authorization completed on cover my meds with correct insurance number * Telephone Encounter - Wendi Rosas M.A. - 03/03/2019 10:07 AM EST Called patient . Tried doing prior authorization on cover my meds. Cannot verify patient * Telephone Encounter - Mckayla Eldridge - 03/02/2019 3:15 PM EST Prior Authorization for Medication-do not complete and send this encounter unless you have the fax from the pharmacy. Is this a Cover My Meds request: Yes -- Ceja Code [id number] Name of Medication: Fluticasone Furoate-Vilanterol (BREO ELLIPTA) 100-25 MCG/INH AEROSOL POWDER,BREATH Dose of Medication 100-25mcg What is the RX # from the faxed refill? How does patient take this med? Inhale in to lungs for 90 days What Pharmacy did the fax come from: [facility] fax #: [phone] [employer] Information from fax: What Prescription Plan does the patient have? 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) Former smoker Personal history of tobacco use, presenting hazards to health Chronic obstructive pulmonary disease, unspecified COPD type (HCC) Mild persistent asthma with acute exacerbation Unspecified asthma, with exacerbation Obstructive sleep apnea severe AHI 34 with sleep related hypoxia Obstructive sleep apnea (adult) (pediatric) documented in this encounter Care Teams Carpentry Professional Relationship Specialty Start Date End Date Hannah Steinberg MD PCP - General Internal Medicine 01/20/1802/17 [facility], Pcp PCP - General Internal Medicine 02/27/21 documented as of this encounter
--- OUTSIDE RECORDS SUMMARY | 2025-04-11 10:31 | XMS_ITS | Encounter Summary ---
Author Organization [facility] Prior to 02/18/[address] [place] [address] Care Team Providers Care Farmworker Grain Name Role Phone Hannah Steinberg MD Primary Care Provider U Fuentes Garcia MD Primary Care Provider Unavail able Hannah Steinberg MD Primary Care Provider U [facility], Pcp Primary Care Provider Unavailabl e Reason for Visit * Reason Onset Date Comments Appointment-Internal Referral 08/16/2017 pike Encounter Details Date Type Department Care Team Description 08/16/2017 Telephone Dermatology - [address] [address] Gwen Dos Santos, FIDENCIO [address] [place] [address] Appointment-Internal Referral (dermatology) Social History Tobacco Use Types Packs/Day Years [...] encounter Miscellaneous Notes * Telephone Encounter - Licha Bautista - 08/16/2017 7:45 AM EDT I have been unable to reach this patient by phone. A letter is being sent. documented in this encounter Plan of Treatment Not on file documented as of this encounter Visit Diagnoses Not on filedocumented in this encounter Care Teams Farmworker Grain Relationship Specialty Start Date End Date Hannah Steinberg MD PCP - General Internal Medicine 06/25/1711/08 Fuentes Disla MD PCP - General Internal Medicine 11/09/17 01/19/18 Hannah Steinberg MD PCP - General Internal Medicine 01/20/1802/17 [facility] Pcp PCP - General Internal Medicine 02/27/21 documented as of this encounter
--- OUTSIDE RECORDS SUMMARY | 2025-04-11 10:31 | XMS_ITS | Encounter Summary ---
Author Organization [facility] Prior to 02/18/2024 Address [address] [place] [address] Care Team Providers Care Director Of In Service Education Name Role Phone Hannah Steinberg MD Primary Care Provider [facility], Pcp Primary Care Provider Unavailabl e Encounter Details Date Type Department Care Team Description 03/08/2019 Orders Only Pulmonology - [place] 175 [facility] [address] [place] [address] Viktor Schulte MD 175 [facility] [address] [place] [phone] Former smoker; Chronic obstructive pulmonary disease, unspecified COPD type (HCC); Mild persistent asthma with acute exacerbation; 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); Obstructive sleep apnea severe AHI 34 with sleep related hypoxia Social History Tobacco Use Types Packs/Day Years [...] on file documented as of this encounter Procedures Procedure Name Priority Date/Time Associated Diagnosis Comments CHG RADIOLOGIC EXAM CHEST 2 VIEWS Routine 03/02/2019 Former smoker Chronic obstructive pulmonary disease, unspecified COPD type (HCC) Mild persistent asthma with acute exacerbation 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) Obstructive sleep apnea severe AHI 34 with sleep related hypoxia documented in this encounter Results * RADIOLOGIC EXAM CHEST 2 VIEWS (03/02/2019) Viktor Schulte MD RADIOLOGY documented in this encounter Visit Diagnoses Diagnosis Former smoker Personal history of tobacco use, presenting hazards to health Chronic obstructive pulmonary disease, unspecified COPD type (HCC) Mild persistent asthma with acute exacerbation Unspecified asthma, with exacerbation 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
--- OUTSIDE RECORDS SUMMARY | 2025-04-11 10:31 | XMS_ITS | Encounter Summary ---
Author Organization [facility] Prior to 02/18/[address] [place] [address] Care Team Providers Care Paint Laboratory Technician Name Role Phone Hannah Steinberg MD Primary Care Provider U Fuentes Garcia MD Primary Care Provider Unavail able Hannah Steinberg MD Primary Care Provider U peggy Jones, Pcp Primary Care Provider Unavailabl e Encounter Details Date Type Department Care Team Description 07/23/2017 Release of Information Medical Records [address] [place] [address] Abstract, Provider Social History Tobacco Use Types [...] on filedocumented in this encounter Care Teams Paint Laboratory Technician Relationship Specialty Start Date End Date Hannah Steinberg MD PCP - General Internal Medicine 06/25/1711/08 Fuentes Disla MD PCP - General Internal Medicine 11/09/17 01/19/18 Hannah Steinberg MD PCP - General Internal Medicine 01/20/1802/17 [facility], Pcp PCP - General Internal Medicine 02/27/21 documented as of this encounter
--- OUTSIDE RECORDS SUMMARY | 2025-04-11 10:31 | XMS_ITS | Encounter Summary ---
Author Organization [facility] Prior to 02/18/[address] [place] [address] Care Team Providers Care Buzzsaw Operator Helper Name Role Phone Hannah Steinberg MD Primary Care Provider U Fuentes Garcia MD Primary Care Provider Unavail able Hannah Steinberg MD Primary Care Provider U peggy Jones, Pcp Primary Care Provider Unavailabl e Encounter Details Date Type Department Care Team Description 07/13/2017 Transfer Records Medical Records [address] [place] [address] Abstract, Provider Social History Tobacco Use Types Packs/Day Years Used Date Smoking Tobacco: Never Assessed Sex Assigned at Date Recorded Not on file documented as of this encounter Nursing Notes * Bernarda Zavala - 07/13/2017 12:11 PM EDT Transfer Records from Jake Fabian MD sent to Umm Ortega R.N. New Patient Escort. documented in this encounter Plan of Treatment Not on file documented as of this encounter Visit Diagnoses Not on filedocumented in this encounter Care Teams Buzzsaw Operator Helper Relationship Specialty Start Date End Date Hannah Steinberg MD PCP - General Internal Medicine 06/25/1711/08 Fuentes Disla MD PCP - General Internal Medicine 11/09/17 01/19/18 Hannah Steinberg MD PCP - General Internal Medicine 01/20/1802/17 [facility], Pcp PCP - General Internal Medicine 02/27/21 documented as of this encounter
--- NOTE | 2025-04-11 10:37 | A.OFFVIS_ITS ---
Vital Signs 04/11/25 10:38 Height 5 ft 8 in Weight 218 lb 4.122 oz BMI 33.2 BP 130/78 Blood Pressure Location Lt brachial Position Sitting Pulse 84 Pulse Source Monitor Intake Visit Reasons: PIPE PULLER/ [place]/ [place] ( [place]) Allergies albuterol Allergy (Mild, Verified 02/27/25 13:36) Chest tightness Medication List - Last Reconciled 04/11/25 by Samy Sanchez MD amlodipine 5 mg PO DAILY aspirin 81 mg PO DAILY atorvastatin (Lipitor) 80 mg PO BEDTIME blood sugar diagnostic (Resident ResearchTouch Verio test strips) As directed blood-glucose meter As directed ciclopirox 8% 1 appl topical BEDTIME 4 months clopidogrel 75 mg PO DAILY clotrimazole 1% 1 appl topical BID 4 weeks coenzyme Q10 300 mg PO DAILY [Diabetic shoes Please dispense diabetic shoes with 3 pairs of custom molded inserts.] losartan 100 mg PO DAILY mecobalamin (vitamin B12) 1,000 mcg sublingual BEDTIME 2 months MDD 1000mcg metformin 1,000 mg PO DAILY metoprolol succinate ER 50 mg PO DAILY sildenafil (Viagra) 100 mg PO DAILY PRN temazepam 15 mg PO BEDTIME PRN tirzepatide (Mounjaro) 10 mg (0.5 mL) subcut QWEEK HPI Comments Details: The patient is a 70 year old male presenting for a cardiology follow-up visit. He has a history of a myocardial infarction in 2019 which was treated with a stent in his circumflex artery in September 2019. Since the procedure, he states he has been fine with no further cardiac issues. He is aware of having an irregular heartbeat, described as PVCs, which have been present on previous EKGs. He has a history of COPD and reports long-standing shortness of breath with overexertion, which he feels is about the same and has not worsened recently. His past medical history is also significant for diabetes mellitus, for which he was previously on Mounjaro. He also mentions having a doctor for skin cancer. [facility] Medical History (Updated 04/11/25 @ 11:56 by Samy Sanchez MD) COPD (chronic obstructive pulmonary disease) History of basal cell carcinoma Chronic kidney disease, stage 3 History of nicotine use Diabetes mellitus type 2, controlled, without complications History of myocardial infarction Surgical History History of coronary artery stent placement Family History Mother Dementia Skin cancer Father No problems noted. Social History Housing: House Alcohol intake: current Alcohol intake frequency: does not drink Patient Tobacco Use Status: Never used Tobacco service: No Current occupational status: retired Cognitive needs: No Hearing needs: No Vision needs: No Review of Systems Const Denies weakness ENT Denies dizziness Card Denies chest pain, Denies chest pain with activity, Denies syncope, Denies rapid heart rate, Denies pedal edema, Denies edema, Denies leg edema, Denies lightheadedness, Denies palpitations, Reports dyspnea, Denies dyspnea on exertion and Denies orthopnea Resp Denies cough, Reports dyspnea and Denies dyspnea on exertion GI Denies hematochezia and Denies change in stool character Musc Denies abnormal gait, Denies muscle cramps, Denies muscle weakness, Denies numbness, Denies radiating pain into limb and Denies tingling Neuro Denies abnormal gait, Denies dizziness, Denies syncope, Denies numbness, Denies tingling and Denies weakness Endo Denies palpitations Physical Exam Vital Signs: Last Vital Signs Pulse 84 04/11/25 10:38 BP 130/78 04/11/25 10:38 BMI result Body Mass Index 33.2 Const General: comfortable and no acute distress Orientation/consciousness: patient oriented x3 HEENT Other: Unremarkable Head: Yes normal to inspection Neck Neck: Yes normal visual inspection Chest Chest palpation & inspection: normal inspection of the chest Resp Auscultation: clear to auscultation bilaterally Cardio Palpation: normal PMI Heart sounds: S1 normal heart sound present, S2 normal heart sound present, no gallops, no murmurs and no rubs GI Palpation (GI): Soft to palpation Back/Spine/Pelvis Other: unremarkable Skin General skin exam: no rashes or lesions noted Neuro General: patient oriented x3 Extrem General: Yes normal to inspection Psych Mental Status: mental status grossly normal Office Procedures EKG Details: EKG with underlying sinus rhythm at 84/Min; frequent PVCs with left bundle morphology; [place]. [id number], Complete Assessment & Plan Assessment & Plan (1) Atherosclerotic cardiovascular disease: Code(s): I25.10 - Atherosclerotic heart disease of [place] coronary artery without angina pectoris Category: Medical Plan: Status post PCI to circumflex in 2019. Stress perfusion imaging 2020-frequent PVCs but suppressed by exercise. Fixed proximal inferior perfusion defect from soft tissue attenuation. No ischemia. LVEF 50%. Echocardiogram 2020-LVEF 60-65%. Mild concentric LVH, mild diastolic dysfunction. No significant valvular findings. We will need to obtain last office note. Listed to be on both aspirin and Plavix and unclear why. Med changes after notes were reviewed. (2) PVC (premature ventricular contraction): Code(s): I49.3 - Ventricular premature depolarization Category: Medical Plan: Appears to be chronic. No symptoms from this. Continue beta-blockers. (3) Diabetes mellitus type 2, controlled, without complications: Code(s): E11.9 - Type 2 diabetes mellitus without complications Category: Medical Plan: On metformin, tirzepatide. Hemoglobin A1c is 6.1%. (4) COPD (chronic obstructive pulmonary disease): Code(s): J44.9 - Chronic obstructive pulmonary disease, unspecified Category: Medical Plan: Stable per patient. Plan I informed the patient that I was having difficulty locating his prior cardiology records. We reviewed his history of a heart attack in 2019 which was treated with a stent. I explained that the irregular beats seen on his EKG are PVCs, which are extra beats from the bottom chamber of the heart, and that these can be a result of scar tissue from a previous heart attack. I advised that I will not change any of his current medications until I have a chance to review his previous records. I recommended obtaining an echocardiogram as a baseline for future comparison. We discussed that the best way to communicate with his other providers is through the patient portal. A follow-up visit is planned in six months. Patient was informed and verbally consented to the use of an ambient scribe for clinic note documentation during this visit. Patient Instructions: - I will request your previous medical records from your weatherization crew leader in [place], Dr. Johns. - Do not make any changes to your current medications until we discuss them further. - We will schedule an echocardiogram, which is an ultrasound of your heart, to get a new baseline. - Please schedule a follow-up appointment to be seen again in six months. - If anything comes up before your next visit, please call the office. Coding Level of Care Code New Pt Level 4 (57126) Add On Problem Visit Only Diagnoses Atherosclerotic cardiovascular disease I25.10 PVC (premature ventricular contraction) I49.3 Diabetes mellitus type 2, controlled, without complications E11.9 COPD (chronic obstructive pulmonary disease) J44.9 CPT Codes EKG - CPT: 12623-[id number], Complete ([id number])
[2025-04-11 10:38] VITALS: BP 130/78; PULSE 84; BMI 33.2
== END 2025-04-11 11:03 | disposition home or self-care (01) ==
LOC: HO.HCS 10:19
PROVIDERS: PCP Student in an Organized Health Care Education/Training Program; Visit Provider Internal Medicine
DX: I25.10 Atherosclerotic heart disease of native coronary artery without angina pectoris (principal); I49.3 Ventricular premature depolarization; E11.9 Type 2 diabetes mellitus without complications; J44.9 Chronic obstructive pulmonary disease, unspecified
CPT/HCPCS: 93010; 99204; G2211

== ENCOUNTER 2025-04-13 13:48 | Outpatient (REF) | payer MEDICARE, SELFPAY ==
--- NOTE | ~2025-04-13 | US_ITS ---
EXAMINATION: US RETROPERITONEUM HISTORY: N18.9 - Chronic kidney disease, unspecified TECHNIQUE: Real-time grayscale ultrasound imaging of the kidneys was performed and images were reviewed. COMPARISON: There are no prior studies available for comparison. FINDINGS: Right kidney: The right kidney measures 10.2 x 5.9 x 5.8 cm. Renal parenchymal echotexture and thickness are normal. There are no masses. There is no hydronephrosis or renal calculi. Left Kidney: The left kidney measures 9.4 x 5.0 x 4.1 cm. Renal parenchymal echotexture and thickness are normal. There are no masses. There is no hydronephrosis or renal calculi. The urinary bladder is unremarkable. Bilateral ureteral jets are identified. Before voiding, the urinary bladder measured 8.3 x 6.3 x 6.8 cm, for an estimated volume of 189 mL. After voiding, the urinary bladder measured 3.7 x 1.4 x 1.7 cm, for an estimated volume of 4.8 mL. The prostate measures 4.0 x 3.8 x 3.5 cm, for an estimated volume of 27.6 mL. US/US retroperitoneal comp IMPRESSION: 1. Unremarkable retroperitoneal ultrasound. 2. Post void bladder residual of 4.8 mL. 3. Prostate volume of 27.6 mL. Electronically signed by: Tonio Puri MD 04/13/2025 02:45 PM CANDIDA
--- OUTSIDE RECORDS SUMMARY | 2025-04-13 13:50 | XMS_ITS | Encounter Summary ---
Author Organization [facility] Prior to 02/18/[address] [place] [address] Care Team Providers Care Needle Straightener Name Role Phone Hannah Steinberg MD Primary Care Provider U peggy Jones, Pcp Primary Care [facility] Encounter Details Date Type Department Care Team Description 07/11/2020 SCAN Medical Records [address] [place] [address] Abstract, Provider Social History Tobacco Use Types [...] on filedocumented in this encounter Care Teams Needle Straightener Relationship Specialty Start Date End Date Hannah Steinberg MD PCP - General Internal Medicine 01/20/1802/17 Karen, Pcp PCP - General Internal Medicine 02/27/21 documented as of this encounter
--- OUTSIDE RECORDS SUMMARY | 2025-04-13 13:50 | XMS_ITS | Encounter Summary ---
Author Organization [facility] Prior to 02/18/[address] [place] [address] Care Team Providers Care Glass Decorator Name Role Phone Hannah Steinberg MD Primary Care Provider U Fuentes Garcia MD Primary Care Provider Unavail able Hnanah Steinberg MD Primary Care Provider U peggy Jones, Pcp Primary Care Provider Unavailabl e Encounter Details Date Type Department Care Team Description 07/13/2017 Transfer Records Medical Records [address] [place] [address] Abstract, Provider Social History Tobacco Use Types Packs/Day Years Used Date Smoking Tobacco: Never Assessed Sex Assigned at Date Recorded Not on file documented as of this encounter Nursing Notes * Bernarda Zavala - 07/13/2017 12:11 PM EDT Transfer Records from Jake Fabian MD sent to Umm Ortega R.N. Presidential Helicopter Crew Chief. documented in this encounter Plan of Treatment Not on file documented as of this encounter Visit Diagnoses Not on filedocumented in this encounter Care Teams Glass Decorator Relationship Specialty Start Date End Date Hannah Steinberg MD PCP - General Internal Medicine 06/25/1711/08 Fuentes Disla MD PCP - General Internal Medicine 11/09/17 01/19/18 Hannah Steinberg MD PCP - General Internal Medicine 01/20/1802/17 [facility], Pcp PCP - General Internal Medicine 02/27/21 documented as of this encounter
--- OUTSIDE RECORDS SUMMARY | 2025-04-13 13:50 | XMS_ITS | Encounter Summary ---
Author Organization [facility] Prior to 02/18/[address] [place] [address] Care Team Providers Care Automobile Upholsterer Name Role Phone Hannah Steinberg MD Primary Care Provider U peggy Jones, Pcp Primary Care Provider [facility] e Encounter Details Date Type Department Care Team Description 03/19/2018 Hospital Medical Records [address] [place] [address] Susie Lugo NP Social History Tobacco Use Types Packs/Day Years [...] on filedocumented in this encounter Care Teams Automobile Upholsterer Relationship Specialty Start Date End Date Hannah Steinberg MD PCP - General Internal Medicine 01/20/1802/17 Karen, Pcp PCP - General Internal Medicine 02/27/21 documented as of this encounter
--- OUTSIDE RECORDS SUMMARY | 2025-04-13 13:50 | XMS_ITS | Encounter Summary ---
Author Organization [facility] Prior to 02/18/[address] [place] [address] Care Team Providers Care Cook Helper Juice Name Role Phone Hannah Steinberg MD Primary Care Provider [facility] Primary Care Provider Unavail able Hannah Steinberg MD Primary Care Provider U [facility], Pcp Primary Care Provider Unavailabl e Reason for Referral * Non OJ (Routine) - Authorized/Booked Specialty Diagnoses / Procedures Referred By Contac t Referred To Contact Pulmonology Diagnoses Obstructive sleep apnea Chronic obstructive pulmonary disease, unspecified COPD type (HCC) Procedures REFERRAL TO PULMONOLOGY Hannah Steinberg MD [address] [place] [address] Puloh/Brina [address] [place] [address] Referral ID Status Reason Start Date Expiration Date V isits Requested Visits Authorized [id number] Authorized/B ooked 09/02/2017 09/02/2018 1 1 Encounter Details Date Type Department Care Team Description 09/02/2017 Orders Only Adult Medicine B - [address] [address] Hannah Steinberg MD Obstructive sleep apnea severe [...] (HCC) documented in this encounter Care Teams Cook Helper Juice Relationship Specialty Start Date End Date Hannah Steinberg MD PCP - General Internal Medicine 06/25/1711/08 Fuentes iDsla MD PCP - General Internal Medicine 11/09/17 01/19/18 Hannah Steinberg MD PCP - General Internal Medicine 01/20/1802/17 [facility] Pcp PCP - General Internal Medicine 02/27/21 documented as of this encounter
--- OUTSIDE RECORDS SUMMARY | 2025-04-13 13:50 | XMS_ITS | Encounter Summary ---
Author Organization [facility] Prior to 02/18/[address] [place] [address] Care Team Providers Care Fluid Jet Cutter Operator Name Role Phone Hannah Steinberg MD Primary Care Provider U Fuentes Garcia MD Primary Care Provider Unavail able Hannah Steinberg MD Primary Care Provider U [facility], Pcp Primary Care Provider Unavailabl e Reason for Visit * Reason Onset Date Comments Provider Call Back 10/04/2017 Encounter Details Date Type Department Care Team Description 10/04/2017 Telephone Adult Medicine - [address] [address] Hannah Steinberg MD Provider Call Back Social History Tobacco Use Types Packs/Day Years [...] encounter Miscellaneous Notes * Telephone Encounter - Charla Strong - 10/04/2017 11:43 AM EDT If patient is having billing issues, this encounter needs to go to billing dept. * Telephone Encounter - Heather Butcher - 10/04/2017 10:25 AM EDT Caller requesting call back from provider: Is the caller the patient? YES If caller is not the patient, what is the callers name? N/A Callers relationship to patient? N/A If person calling is not the patient themselves, is there a verbal release in FYI or permanent comments for this person: NO Reason for call back: Pt had a pulmonology referral placed and was billed wrong. Was told by provider to call and speak with someone if he had any issues with their office Caller offered to speak with the nurse for assistance: YES Response: Patient offered to speak with nurse for assistance and patient agreed. Message forwarded to nurse. documented in this encounter Plan of Treatment Not on file documented as of this encounter Visit Diagnoses Not on filedocumented in this encounter Care Teams Fluid Jet Cutter Operator Relationship Specialty Start Date End Date Hannah Steinberg MD PCP - General Internal Medicine 06/25/1711/08 Fuentes Disla MD PCP - General Internal Medicine 11/09/17 01/19/18 Hannah Steinberg MD PCP - General Internal Medicine 01/20/1802/17 [facility] Pcp PCP - General Internal Medicine 02/27/21 documented as of this encounter
--- OUTSIDE RECORDS SUMMARY | 2025-04-13 13:50 | XMS_ITS | Clinical Summary ---
Author Organization [facility] Address [address] [place] [address] Care Team Providers Care Parking Attendant Name Role Phone Unavailable Primary Care Provider [...] DX:Hyperlipidemi a Diabetes mellitus type 2, uncomplicated ([facility] V24, [facility] V28) 07/15/2017 DX:Diabetes mellitus type 2, uncomplicated ([facility]) COPD (chronic obstructive pu lmonary disease) ([facility] V24, [facility] V28) 07/15/2017 DX:COPD (chronic o bstructive pulmonary disease) ([facility]); COMMENT: Allergic Asthma Type II diabetes mellitus wi th renal manifestations ([facility] V24, [facility] V28) 07/15/2017 DX:Type II diabetes mellitus with renal manifestations ([facility]) Microalbuminuria 08/16/2017 DX:Microalbumin uria Essential hypertension 08/16/2017 [...] Documents on File Type Date Recorded Patient Integrity Engineer Expl anation Health Care Decision (hx) 03/18/2018 AD HIGUERA DIRECTIVE Health Care Decision (hx) 03/18/2018 AD HIGUERA DIRECTIVE
--- OUTSIDE RECORDS SUMMARY | 2025-04-13 13:50 | XMS_ITS | Encounter Summary ---
Author Organization [facility] Prior to 02/18/[address] [place] [address] Care Team Providers Care Japanese Interpreter Name Role Phone Fuentes Disla MD Primary Care Provider Unavail able Hannah Steinberg MD Primary Care Provider [facility], Pcp Primary Care Provider Unavailabl e Reason for Visit * Reason Onset Date Comments APPOINTMENT 11/30/2017 Encounter Details Date Type Department Care Team Description 11/30/2017 Telephone Adult Medicine [address] [address] Ban Mendoza FNP [address] [place] [id number] APPOINTMENT Social History Tobacco Use Types Packs/Day [...] on filedocumented in this encounter Care Teams Japanese Interpreter Relationship Specialty Start Date End Date Fuentes Disla MD PCP - General Internal Medicine 11/09/17 01/19/18 Hannah Steinberg MD PCP - General Internal Medicine 01/20/1802/17 [facility], Pcp PCP - General Internal Medicine 02/27/21 documented as of this encounter
--- OUTSIDE RECORDS SUMMARY | 2025-04-13 13:50 | XMS_ITS | Encounter Summary ---
Author Organization [facility] Prior to 02/18/2024 Address [address] [place] [address] Care Team Providers Care Mannequin Mold Maker Name Role Phone Hannah Steinberg MD Primary Care Provider [facility], Pcp Primary Care Provider Unavailabl e Encounter Details Date Type Department Care Team Description 03/08/2019 Orders Only Pulmonology - [place] [address] [facility] [phone] Viktor Schulte MD [address] [facility] [phone] Former smoker; Chronic obstructive pulmonary disease, unspecified [...] (pediatric) documented in this encounter Care Teams Mannequin Mold Maker Relationship Specialty Start Date End Date Hannah Steinberg MD PCP - General Internal Medicine 01/20/1802/17 [facility], Pcp PCP - General Internal Medicine 02/27/21 documented as of this encounter
--- OUTSIDE RECORDS SUMMARY | 2025-04-13 13:50 | XMS_ITS | Clinical Summary ---
Author Organization [facility] Prior to 02/18/2024 Address [address] [place] [address] Care Team Providers Care Air/Ocean Export Clerk Name Role Phone Community, Pcp Primary Care Provider Unavailabl e Allergies Active Allergy Reactions Severity Noted Date Comments Albuterol Sulfate 03/25/2018 Tachycardia, anxiety Pravastatin Myalgia and Joint Pain 08/03/2017 Rosuvastatin Myalgia and Joint Pain 08/03/2017 Simvastatin Myalgia and Joint Pain 08/03/2017 Medications Medication Sig Dispensed Refills Start Date End Date Status [place]-3 Fatty Acids (FISH OIL OR) Take by mouth. 0 Active CPAP Historical (HISTORICAL CPAP) Inhale into the lungs. Life supply pressure 6-10 0 Active aspirin 81 MG tablet Take 81 mg by mouth daily. 0 Active glucose monitoring kit (FREESTYLE) monitoring kit Use to test blood sugar twice a day.DX-E11.29,NID DM.*Free Style Lite* 1 Kit 0 07/26/2018 Active FREESTYLE LANCETS Misc Use to test blood sugar twice a day.DX-E11.29,NID DM.*Free Style Lite* 200 Each 1 07/26/2018 Active Glucose Blood (FREESTYLE LITE) Strip Use to test blood sugar twice a day.DX-E11.29,NID DM.*Free Style Lite* 200 Strip 1 04/04/2019 Active clopidogrel (PLAVIX) 75 MG tablet Take 1 Tab by mouth daily for 180 days. 90 Tab 1 10/04/2019 Active metoprolol (LOPRESSOR) 25 MG tablet Take 1 Tab by mouth 2 times daily for 180 days. 90 Tab 1 10/04/2019 Active azelaic acid (AZELEX) 20 % cream Apply a thin film to the affected area(s) twice daily, in the morning and evening 30 g 0 11/06/2019 Active lisinopril (PRINIVIL,ZESTRIL) 10 MG tablet TAKE ONE TABLET BY MOUTH EVERY DAY 90 Tab 1 01/25/2020 Active Coenzyme Q10 300 MG CapIndications:Overla p syndrome (HCC),Need for prophylactic vaccination and inoculation against influenza,Chronic obstructive pulmonary disease, unspecified COPD type (HCC),Former smoker,Obstructive sleep apnea Take by mouth. 0 Active atorvastatin (LIPITOR) 40 MG tablet Take 1 Tab by mouth daily for 360 days. 90 Tab 1 02/09/2020 Active metformin (GLUCOPHAGE-XR) 500 MG 24 hr tablet Take 2 Tabs by mouth daily (with breakfast). 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 Date 11/28/2017. SE 65 % SM 69 %; spent 24 % of the study in REM. On CPAP @ 9; RDI 0 (AHI 0), Central apneas 0; Obstructive apneas 0; Mixed apneas 0; hypopneas 0; RERAs 0; and, average oxygen saturation was 93%. For the entire study, PLMs ~65. - Obstructive Sleep Apnea - severe; mostly hypopneas and obstructive apneas; with sleep related hypoventilation by 2018 home polysomnogram. 07/04/2018: Fax from [facility] about pressures issues - kesha to Tonio for clarification. 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 07/15/2017 Resolved Problems Problem Noted Date Resolved Date DINA (acute kidney injury) 04/18/20192019 COPD (chronic obstructive pulmonary disease) 09/01/2018 Overview: Allergic Asthma Immunizations Name Administration Dates Next Due Influenza Vaccine-preservati ve Free-quadrivalent 4 Years 01/31/2020,02/07/2019 Pneumoccoccal(Adult) Polysaccharide PPSV23 07/05 TD (STATE SUPPLIED FOR ADULTS AND CHILDREN) 01/18 Family History Medical History Relation Name Comments CAD Father HTN, Gout CA Lung Mother CAD, HTN, Asthm a, DM II [...] Assigned at Date Recorded Not on file Last Filed Vital Signs Vital Sign Reading Time Taken Comments Blood Pressure 127/58 02/09/2020 12:59 PM EDT Pulse 82 02/09/2020 12:59 PM EDT Temperature 36.9 C (98.4 F) 02/07/2019 1:11 PM EDT Respiratory Rate 16 02/09/2020 12:5 9 PM EDT Oxygen Saturation 97% 01/31/2020 10: 51 AM EDT Inhaled Oxygen Concentration - - Weight 100.2 kg (220 lb 12.8 oz) 2019 12:59 PM EDT Height 177.8 cm (5' 10 ) 02/09/2020 12: 59 PM EDT Body Mass Index 31.68 02/09/2020 12:59 PM EDT Plan of Treatment Health Maintenance Due Date Last Done Comments Covid-19 Vaccine (#1) 1955 SHINGLES VACCINE (1 of 2) 02/04/2006 DTAP/TDAP/TD (1 - Tdap) 02/08/2019 02/07/2019 DIABETES: ANNUAL EYE EXAM 07/06/2019 07/05/2018 DIABETES: ANNUAL FOOT EXAM 07/06/2019 07/05/2018 DIABETES: ANNUAL URINE PROTE IN TEST (MICROALBUMIN) 04/18/2020 04/18/2019, 06/30/2018, 08/03/2017, Additional history exists DIABETES: BLOOD SUGAR CONTRO L TEST (HGBA1C) 05/09/2020 02/07/2020, 08/07/2019, 02/06/2019, Additional history exists PNEUMOCOCCAL VACCINE (2 - PCV) 02/04/2021 07/05/2018 DIABETES/HEART DISEASE: KAREN AL CHOLESTEROL (LDL) 02/06/2021 02/07/2020, 02/06/2019, 01/20/2018, Additional history exists BMI CHECK/ADVISE 04/19/2024 02/09/2020, , 05/29/2019, Additional history exists DEPRESSION SCREENING/FOLLOWUP 04/19/2024 07/05/2018 INFLUENZA (#1) 2024 01/31/2020, 02/07/2019 COLON CANCER SCREENING 11/16/2028 9 (Completed), 11/16/2018, 08/22/2008 (External Completion), Additional history exists HEPATITIS C SCREENING Completed 08/03/2017 Care Teams Air/Ocean Export Clerk Relationship Specialty Start Date End Date Community, Pcp PCP - General Internal Medicine 02/27/21
--- OUTSIDE RECORDS SUMMARY | 2025-04-13 13:50 | XMS_ITS | Encounter Summary ---
Author Organization [facility] Prior to 02/18/[address] [place] [address] Care Team Providers Care Lehr Cutter Name Role Phone Hannah Steinberg MD Primary Care Provider [facility], Pcp Primary Care Provider Unavailabl e Encounter Details Date Type Department Care Team Description 02/06/2019 Orders Only Adult Medicine [address] [address] Hannah Steinberg MD DINA (acute kidney injury) [...] EST [facility] Comment: If patient is -Trinid[place], multiply result by 1.21 Chronic Kidney Disease: [...] unspecified documented in this encounter Care Teams Lehr Cutter Relationship Specialty Start Date End Date Hannah Steinberg MD PCP - General Internal Medicine 01/20/1802/17 [facility], Pcp PCP - General Internal Medicine 02/27/21 documented as of this encounter
== END 2025-04-13 13:49 | disposition home or self-care (01) ==
LOC: HO.US 13:48
PROVIDERS: PCP Student in an Organized Health Care Education/Training Program; Visit Provider Student in an Organized Health Care Education/Training Program
DX: N18.9 Chronic kidney disease, unspecified (principal); N17.9 Acute kidney failure, unspecified
CPT/HCPCS: 76770

== ENCOUNTER → 2025-04-13 13:50 | Outpatient (BNV) | payer MEDICARE, SELFPAY | PROVIDERS: PCP Student in an Organized Health Care Education/Training Program; Visit Provider Radiology Diagnostic Radiology | DX: N18.9 Chronic kidney disease, unspecified (principal) | CPT/HCPCS: 76770 ==

== ENCOUNTER → 2025-04-15 10:08 | Outpatient (BNV) | payer MEDICARE, SELFPAY | PROVIDERS: PCP Student in an Organized Health Care Education/Training Program; Visit Provider Psychiatry & Neurology Neurology | DX: G47.33 Obstructive sleep apnea (adult) (pediatric) (principal) | CPT/HCPCS: 95806 ==

== ENCOUNTER 2025-04-16 11:54 | Outpatient (AMB) | payer MEDICARE, SELFPAY ==
[2025-04-16 11:55] VITALS: BP 131/71; PULSE 57; RESP 16; TEMP 36.6; O2SAT 97; BMI 33.6
--- NOTE | 2025-04-16 11:55 | AM.OFFWIN_ITS ---
Intake Vital Signs 04/16/25 11:55 Height 5 ft 8 in Weight 221 lb BMI 33.6 BP 131/71 Blood Pressure Location Lt brachial Position Sitting Respiration 16 Pulse 57 Pulse Source Pulse Oximeter Temp 97.8 F Temp Source Oral Pulse Oximetry (%) 97 Oxygen Delivery Method Room Air Intake Visit Reasons: EP - Sore Throat Intake Note: Patient complains of Sore throat and mild cough for about a week. Patient Tobacco Use Status: Never used Tobacco Allergies albuterol Allergy (Mild, Verified 04/16/25 12:06) Chest tightness Do you need a note to return to daycare/school/sports/work: No HPI HPI Comments History of Present Illness Details History of Present Illness The patient is a 70 year old male with a past medical history of COPD, hypertension, type 2 diabetes mellitus, coronary artery disease presenting with a sore throat and cough. - The patient has been experiencing a so re throat and cough for the past week, a problem that he reports occurs annually between mid-February and mid-May and can last for two or more weeks. - He notes this issue did not occur when he lived in [place]. - In the past, he was occasionally treat ed with amoxicillin, but unsure if she was diagnosed with strep pharyngitis - He has taken NyQuil at night, Chlorase ptic tablets, and cough drops for his symptoms. - He reports some congestion with cold a ir but denies fevers or trouble swallowing. - The patient has a history of COPD sinc e he was a teenager. - He reports no worsening of shortness o f breath from his baseline Review of Systems - Constitutional: Denies fevers. - HEENT: Reports sore throat and some co ngestion with cold air. Denies trouble swallowing. - Respiratory: Reports cough. Denies wor sening dyspnea at baseline. - Cardiac: Denies chest pain. - Gastrointestinal: Denies nausea, vomit ing, or diarrhea. Physical Exam General Appearance: Normal appearance, well developed. No acute distress HEENT: Normocephalic, atraumatic. External ears and ear canals normal. TM without erythema or bulging. Mild clear nasal drainage and Postnasal drip noted. Oropharynx clear with mild erythema, however no exudates. Uvula midline. Patient handling secretions well. No cervical lymphadenopathy palpated. Cardiac: Regular rate and rhythm. No murmurs. Pulmonary: No respiratory distress. Clear to auscultation bilaterally. Musculoskeletal: Moving all extremities spontaneously and against gravity Mental Status: Alert and Oriented x 3 Psychiatric: Normal mood. Normal affect. [facility] Medical History (Updated 04/11/25 @ 11:56 by Samy Sanchez MD) COPD (chronic obstructive pulmonary disease) History of basal cell carcinoma Chronic kidney disease, stage 3 History of nicotine use Diabetes mellitus type 2, controlled, without complications History of myocardial infarction Surgical History History of coronary artery stent placement Family History Mother Dementia Skin cancer Father No problems noted. Social History Housing: House Alcohol intake: current Alcohol intake frequency: does not drink Patient Tobacco Use Status: Never used Tobacco service: No Current occupational status: retired Cognitive needs: No Hearing needs: No Vision needs: No Physical Exam Vital Signs: Last Vital Signs Temp 97.8 F 04/16/25 11:55 Pulse 57 04/16/25 11:55 Resp 16 04/16/25 11:55 BP 131/71 04/16/25 11:55 Pulse Ox 97 04/16/25 11:55 Oxygen Delivery Method Room Air 04/16/25 11:55 BMI result Body Mass Index 33.6 Assessment & Plan Assessment & Plan (1) Sore throat: Code(s): J02.9 - Acute pharyngitis, unspecified Plan - Patient presents with one-week history of sore throat and cough. Physical exam revealed mild erythematous oropharynx without exudates and post nasal drip. - A rapid strep in office was negative. Throat cultures were obtained. - The patient's symptoms are most consistent with viral pharyngitis, likely exacerbated by postnasal drip, given the erythema without exudates on exam. - Recommended treatment with Flonase and consider an antihistamine like Zyrtec or Kasia. - For symptomatic relief, Cepacol throat lozenges are recommended for their numbing effect - Will contact patient with throat culture results - F/U if worsening sore thorat, fevers, or difficulty swallowing Patient was informed and verbally consented to the use of an ambient scribe for clinic note documentation during the visit. Orders: Orders AMB Rapid Strep Screen Today J02.9 - Acute pharyngitis, unspecified Throat Culture Today J02.9 - Acute pharyngitis, unspecified Coding Level of Care Code Est Pt Level 3 (93131) Diagnoses Sore throat J02.9
--- OUTSIDE RECORDS SUMMARY | 2025-04-16 14:00 | XMS_ITS | Encounter Summary ---
Author Organization [facility] Prior to 02/18/[address] [place] [address] Care Team Providers Care Equities Analyst Name Role Phone Hannah Steinberg MD Primary Care Provider U Fuentes Garcia MD Primary Care Provider Unavail able Hannah Steinberg MD Primary Care Provider U [facility], Pcp Primary Care Provider Unavailabl e Encounter Details Date Type Department Care Team Description 10/18/2017 Pt. Non Urgent Medical Question Adult Medicine - [address] [address] Hannah Steinberg MD Obstructive sleep apnea severe AHI 34 with sleep related hypoxia (Primary Dx); Chronic obstructive pulmonary disease, unspecified COPD type (HCC); Type 2 diabetes mellitus with other diabetic kidney complication, without long-term current use of insulin (HCC) Social History Tobacco Use Types Packs/Day Years Used Date Smoking Tobacco: Former Cigarettes 2 30 Q uit: 04/19/1991 Smokeless Tobacco: Never Comments:Quit 30 yrs ago, >6 0 pack/yr history Alcohol Use Standard Drinks/Week Comments No 0 (1 standard drink = 0.6 oz pur e alcohol) Sex Assigned at Date Recorded Not on file documented as of this encounter Progress Notes * Argelia Tam M.A. - 10/19/2017 8:18 AM EDT On hold with sleep medicine services for 8 minutes, unable to hold any longer, will try back later today. Pt is pending appts in pulmonary with RB * Mayra BraunPCarlosN. - 10/19/2017 7:46 AM EDTFrom: Tonio Monroe To: Hannah Ortega MD Sent: 10/18/2017 6:15 PM EDT Subject: Sleep Apnea F/Up On 09/01/2017 I received a letter from you stating I have Obstructive sleep apnea severe AHl 34 w/sleep related hypoxia. I called the sleep study location 2x for further testing and they said they would contact you for another referral, still no returned phone calls. I also called your office 2x andwas informed I would be contacted within 48 hours. Still no call back. It is now October. Is there some thing I should be doing? I would appreciate a call or email. Thanks Filiberto Monroe documented in this encounter Plan of Treatment Not on file documented as of this encounter Visit Diagnoses Diagnosis Obstructive sleep apnea severe AHI 34 with sleep related hypoxia- Primary Obstructive sleep apnea (adult) (pediatric) Chronic obstructive pulmonary disease, unspecified COPD type (HCC) Type 2 diabetes mellitus with other diabetic kidney complication, without long- term current use of insulin (HCC) documented in this encounter Care Teams Equities Analyst Relationship Specialty Start Date End Date Hannah Steinberg MD PCP - General Internal Medicine [facility]1711/08 [facility] - General Internal Medicine 11/09/17 01/19/18 Hannah Steinberg MD PCP - General Internal Medicine 01/20/1802/17 [facility], Pcp PCP - General Internal Medicine 02/27/21 documented as of this encounter
--- OUTSIDE RECORDS SUMMARY | 2025-04-16 14:00 | XMS_ITS | Encounter Summary ---
Author Organization [facility] Prior to 02/18/[address] [place] [address] Care Team Providers Care Dollyman Name Role Phone Hannah Steinberg MD Primary Care Provider U Fuentes Garcia MD Primary Care Provider Unavail able Hannah Steinberg MD Primary Care Provider U [facility], Pcp Primary Care Provider Unavailabl e Encounter Details Date Type Department Care Team Description 07/23/2017 Release of Information Medical Records [address] [place] [address] Abstract, Provider Social History Tobacco Use Types [...] on filedocumented in this encounter Care Teams Dollyman Relationship Specialty Start Date End Date Hannah Steinberg MD PCP - General Internal Medicine 06/25/1711/08 Fuentes Disla MD PCP - General Internal Medicine 11/09/17 01/19/18 Hannah Steinberg MD PCP - General Internal Medicine 01/20/1802/17 [facility], Pcp PCP - General Internal Medicine 02/27/21 documented as of this encounter
--- OUTSIDE RECORDS SUMMARY | 2025-04-16 14:00 | XMS_ITS | Encounter Summary ---
Author Organization [facility] Prior to 02/18/[address] [place] [address] Care Team Providers Care Sprayer Insecticide Name Role Phone Hannah Steinberg MD Primary Care Provider U Fuentes Garcia MD Primary Care Provider Unavail able Hannah Steinberg MD Primary Care Provider U [facility], Pcp Primary Care Provider Unavailabl e Encounter Details Date Type Department Care Team Description 09/01/2017 Orders Only Medical Records [address] [place] [address] Gwen Dos Santos NP [address] [place] [address] Social History Tobacco Use Types Packs/Day Years [...] Procedure Name Priority Date/Time Associated Diagnosis Comments OUTSIDE SLEEP STUDY Routine 08/30/2017 documented in this encounter Results * OUTSIDE SLEEP STUDY (08/30/2017) Gwen Dos Santos VICE PRESIDENT PAYMENT PULMONOLOGY documented in this encounter Visit Diagnoses Not on filedocumented in this encounter Care Teams Sprayer Insecticide Relationship Specialty Start Date End Date Hannah Steinberg MD PCP - General Internal Medicine 06/25/1711/08 Fuentes Disla MD PCP - General Internal Medicine 11/09/17 01/19/18 Hannah Steinberg MD PCP - General Internal Medicine 01/20/1802/17 [facility], Pcp PCP - General Internal Medicine 02/27/21 documented as of this encounter
--- OUTSIDE RECORDS SUMMARY | 2025-04-16 14:00 | XMS_ITS | Encounter Summary ---
Author Organization [facility] Prior to 02/18/[address] [place] [address] Care Team Providers Care Automotive Power Electronics Engineer Name Role Phone Hannah Steinberg MD Primary Care Provider [facility], Pcp Primary Care Provider Unavailabl e Reason for Visit * Reason Onset Date Comments Faxed Refill 04/04/2019 Encounter Details Date Type Department Care Team Description 04/04/2019 Refill Adult Medicine [address] [address] Hannah Steinberg MD Faxed Refill Social History [...] on filedocumented in this encounter Care Teams Automotive Power Electronics Engineer Relationship Specialty Start Date End Date Hannah Steinberg MD PCP - General Internal Medicine 01/20/1802/17 [facility], Pcp PCP - General Internal Medicine 02/27/21 documented as of this encounter
--- OUTSIDE RECORDS SUMMARY | 2025-04-16 14:00 | XMS_ITS | Encounter Summary ---
Author Organization [facility] Prior to 02/18/[address] [place] [address] Care Team Providers Care Medical Assisting Program Director Name Role Phone Hannah Steinberg MD Primary Care Provider [facility], Pcp Primary Care Provider Unavailabl e Encounter Details Date Type Department Care Team Description 02/06/2019 Orders Only Adult Medicine [address] [address] Hannah Steinberg MD DINA (acute kidney injury) [...] EST [facility] Comment: If patient is -Australian, multiply result by 1.21 Chronic Kidney Disease: [...] unspecified documented in this encounter Care Teams Medical Assisting Program Director Relationship Specialty Start Date End Date Hannah Steinberg MD PCP - General Internal Medicine 01/20/1802/17 [facility], Pcp PCP - General Internal Medicine 02/27/21 documented as of this encounter
--- OUTSIDE RECORDS SUMMARY | 2025-04-16 14:00 | XMS_ITS | Clinical Summary ---
Author Organization [facility] Address [address] [place] [address] Care Team Providers Care Wardrobe Specialist Name Role Phone Unavailable Primary Care Provider [...] DX:Hyperlipidemi a Diabetes mellitus type 2, uncomplicated ([facility] V24, [facility] V28) 07/15/2017 DX:Diabetes mellitus type 2, uncomplicated ([facility]) COPD (chronic obstructive pu lmonary disease) ([facility] V24, [facility] V28) 07/15/2017 DX:COPD (chronic o bstructive pulmonary disease) ([facility]); COMMENT: Allergic Asthma Type II diabetes mellitus wi th renal manifestations ([facility] V24, [facility] V28) 07/15/2017 DX:Type II diabetes mellitus with renal manifestations ([facility]) Microalbuminuria 08/16/2017 DX:Microalbumin uria Essential [...] Documents on File Type Date Recorded Patient Plant Tender Expl anation Health Care Decision (hx) 03/18/2018 AD HIGUERA DIRECTIVE Health Care Decision (hx) 03/18/2018 AD HIGUERA DIRECTIVE
--- OUTSIDE RECORDS SUMMARY | 2025-04-16 14:00 | XMS_ITS | Encounter Summary ---
Author Organization [facility] Prior to 02/18/[address] [place] [address] Care Team Providers Care Crop Picker Name Role Phone Hannah Steinberg MD Primary Care Provider [facility], Pcp Primary Care Provider [facility] e Encounter Details Date Type Department Care Team Description 03/13/2019 Telephone Adult Medicine [address] [address] Hannah Steinberg MD Social History Tobacco Use Types Packs/Day Years [...] encounter Miscellaneous Notes * Telephone Encounter - Connie Akbar M.A. - 03/13/2019 1:03 PM EST Left message to call back, Please transfer to [phone] or re-message to b side * Telephone Encounter - Connie Akbar M.A. - 03/13/2019 1:03 PM EST ----- Message from Hannah Ortega MD sent at 03/13/2019 12:53 PM EST ----- Please call the patient, and set up a time for him to be seen next week for his kidney function andblood pressure. Please have him read his Acoustic Technologiest message where I asked him to stop his lisinopril (might be the cause of his kidney function to become sluggish and his potassium level to increase) and repeat another blood work a day or two before his follow-up appointment. documented in this encounter Plan of Treatment Not on file documented as of this encounter Visit Diagnoses Not on filedocumented in this encounter Care Teams Crop Picker Relationship Specialty Start Date End Date Hannah Steinberg MD PCP - General Internal Medicine 01/20/1802/17 [facility], Pcp PCP - General Internal Medicine 02/27/21 documented as of this encounter
--- OUTSIDE RECORDS SUMMARY | 2025-04-16 14:00 | XMS_ITS | Clinical Summary ---
Author Organization [facility] Prior to 02/18/2024 Address [address] [place] [address] Care Team Providers Care Print Binding Worker Name Role Phone [facility], Pcp Primary Care Provider Unavailabl e Allergies Active Allergy Reactions Severity Noted Date Comments Albuterol Sulfate 03/25/2018 Tachycardia, anxiety Pravastatin Myalgia and Joint Pain 08/03/2017 Rosuvastatin Myalgia and Joint Pain 08/03/2017 Simvastatin Myalgia and Joint Pain 08/03/2017 Medications Medication Sig Dispensed Refills Start Date End Date Status [place]-3 Fatty Acids (FISH OIL OR) Take by [...] wi th sleep related hypoxia 09/01/2017 Overview: [facility] Home Polysomnogram: Date 08/30/2017; AHI 34, Unclassified apneas 3; Obstructive apneas 99; Central apneas 6; Mixed apneas 0; hypopneas 169; average oxygen saturation 92% (lowest 80% with saturations <88% for 5% or more of study) [facility] Polysomnogram treatment study. Date 11/28/2017. SE 65 [...] by 2018 home polysomnogram. 07/04/2018: Fax from [employer] about pressures issues - kesha to [facility] [...] HEPATITIS C SCREENING Completed 08/03/2017 Care Teams Print Binding Worker Relationship Specialty Start Date End Date [facility], Pcp PCP - General Internal Medicine 02/27/21
--- OUTSIDE RECORDS SUMMARY | 2025-04-16 14:00 | XMS_ITS | Encounter Summary ---
Author Organization [facility] Prior to 02/18/[address] [place] [address] Care Team Providers Care Nurses' Association Counselor Name Role Phone Hannah Steinberg MD Primary Care Provider [facility], Pcp Primary Care Provider Unavailabl e Reason for Visit * Reason Comments E-prescribe Rx Request Encounter Details Date Type Department Care Team Description 05/25/2019 Refill Adult Medicine [address] [address] Florecita Woodall PA-C [address] [place] [address] E-prescribe Rx Request Social History Tobacco Use [...] on filedocumented in this encounter Care Teams Nurses' Association Counselor Relationship Specialty Start Date End Date Hannah Steinberg MD PCP - General Internal Medicine 01/20/1802/17 [facility], Pcp PCP - General Internal Medicine 02/27/21 documented as of this encounter
--- OUTSIDE RECORDS SUMMARY | 2025-04-16 14:00 | XMS_ITS | Encounter Summary ---
Author Organization [facility] Prior to 02/18/2024 Address [address] [place] [address] Care Team Providers Care Marketing Compliance Manager Name Role Phone Hannah Steinberg MD Primary Care Provider [facility], Pcp Primary Care Provider Unavailabl e Encounter Details Date Type Department Care Team Description 03/08/2019 Orders Only Pulmonology - [place] [address] [facility] [address] [place] [address] Viktor Schulte MD [address] [facility] [address] [place] [phone] Former smoker; Chronic obstructive pulmonary disease, unspecified [...] (pediatric) documented in this encounter Care Teams Marketing Compliance Manager Relationship Specialty Start Date End Date Hannah Steinberg MD PCP - General Internal Medicine 01/20/1802/17 [facility], Pcp PCP - General Internal Medicine 02/27/21 documented as of this encounter
--- OUTSIDE RECORDS SUMMARY | 2025-04-16 14:00 | XMS_ITS | Encounter Summary ---
Author Organization [facility] Prior to 02/18/[address] [place] [address] Care Team Providers Care Director Of Student Aid Name Role Phone Hannah Steinberg MD Primary Care Provider U Fuentes Garcia MD Primary Care Provider Unavail able Hannah Steinberg MD Primary Care Provider [facility], Pcp Primary Care Provider Unavailabl e Encounter Details Date Type Department Care Team Description 08/02/2017 Emergency Department Coordinator Report Medical Records [address] [place] [address] Rehab., Javier Social History Tobacco Use Types [...] on filedocumented in this encounter Care Teams Director Of Student Aid Relationship Specialty Start Date End Date Hannah Steinberg MD PCP - General Internal Medicine 06/25/1711/08 Fuentes Disla MD PCP - General Internal Medicine 11/09/17 01/19/18 Hannah Steinberg MD PCP - General Internal Medicine 01/20/1802/17 [facility], Pcp PCP - General Internal Medicine 02/27/21 documented as of this encounter
--- OUTSIDE RECORDS SUMMARY | 2025-04-16 14:00 | XMS_ITS | Encounter Summary ---
Author Organization [facility] Prior to 02/18/[address] [place] [address] Care Team Providers Care Family Manager Name Role Phone Hannah Steinberg MD Primary Care Provider [facility], Pcp Primary Care Provider Unavailabl e Reason for Visit * Reason Onset Date Comments Prior Authorization 03/02/2019 Encounter Details Date Type Department Care Team Description 03/02/2019 Telephone Pulmonology - [place] [address] [facility] [address] [place] [phone] Viktor Schulte MD [address] [facility] [address] [place] [address] Prior Authorization Social History Tobacco [...] luis 100-25mcg from 03/10/2019-03/09/2021 Reference number : [id number] Quantity approved: only includes 60 blisters for [...] My Meds request: Yes -- Ceja Code [id number] Name of Medication: Fluticasone Furoate-Vilanterol (BREO ELLIPTA) 100-25 MCG/INH AEROSOL POWDER,BREATH Dose of Medication 100-25mcg What is the RX # from the faxed refill? How does patient take this med? Inhale in to lungs for 90 days What Pharmacy did the fax come from: [facility] fax #: [phone] [employer] Party Information from fax: What Prescription Plan does [...] (pediatric) documented in this encounter Care Teams Family Manager Relationship Specialty Start Date End Date Hannah Steinberg MD PCP - General Internal Medicine 01/20/1802/17 [facility], Pcp PCP - General Internal Medicine 02/27/21 documented as of this encounter
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
== END 2025-04-16 12:54 | disposition home or self-care (01) ==
LOC: HO.HMCWIS 11:54
PROVIDERS: PCP Student in an Organized Health Care Education/Training Program; Visit Provider Family Medicine
DX: J02.9 Acute pharyngitis, unspecified (principal)

== ENCOUNTER 2025-04-16 11:54 | Outpatient (REF) | payer MEDICARE, SELFPAY ==
[2025-04-16 19:01] LABS: Anion Gap 13 (12-20); Blood Urea Nitrogen 18 mg/dL (9-16); Calcium 9.5 mg/dL (8.4-10.2); Carbon Dioxide 24 mmol/L (22-29); Chloride 109 mmol/L (96-108); Estimated Glomerular Filt Rate 49; Potassium 5.1 mmol/L (3.3-5.1); Sodium 141 mmol/L (135-145)
== END 2025-04-16 11:55 | disposition home or self-care (01) ==
LOC: HO.LAB 11:54
PROVIDERS: Absent Provider Student in an Organized Health Care Education/Training Program; PCP Student in an Organized Health Care Education/Training Program; Visit Provider Family Medicine
DX: J02.9 Acute pharyngitis, unspecified (principal); Z13.89 Encounter for screening for other disorder
CPT/HCPCS: 36415; 80048; 87070